=== PATIENT | male | born 1955 | race Caucasian/White ===

== ENCOUNTER 2017-02-19 08:31 | Emergency (ER) | payer MEDICAID, OTHER ==
[2017-02-19 08:41] VITALS: BP 129/81
--- NOTE | 2017-02-19 09:03 | UC ---
Skin Complaint HPI - HPI Summary HPI Summary: PT presents to with 2 complaints. Pt states #1) dry, scaly itchy lesions on scalp x 3 days. PT states had ring worm on scalp following stay at alcohol rehab center. PT states treated with vinegar. STates improved. Pt states lesions came back. Pt has applied vinegar but thinks "I need treatment" #2) pt with wax in left ear x 1 month. PT states x 1 week has sinus congestion, pressure and fullness left frontal area No sore throat. no fever, chills rash., no cough. No n/v/d Pt medications reviewed this visit - History of Current Complaint Chief Complaint: UCSkin Time Seen by Provider: 02/19/17 08:43 Stated Complaint: SKIN ISSUE - Allergy/Home Medications Allergies/Adverse Reactions: Allergies Allergy/AdvReac Type Severity Reaction Status Date / Time No Known Allergies Allergy Verified 02/19/17 08:36 Review of Systems Constitutional: Negative Skin: Rash ENT: Ear Ache, Sinus Congestion Respiratory: Negative All Other Systems Reviewed And Are Negative: Yes PMH/Surg Hx/FS Hx/Imm Hx Previously Healthy: Yes GI/ History: Other Other GI/ History: alcohol dependence - Surgical History Surgical History: None - Family History Known Family History: Positive: Hypertension - Social History Occupation: Unemployed Lives: Alone Alcohol Use: Occasionally - alcohol depedence Substance Use Type: None Substance Use Comment - Amount & Last Used: hx ETOH abuse Smoking Status (MU): Heavy Every Day Tobacco Smoker Amount Used/How Often: 1 PPD Physical Exam Triage Information Reviewed: Yes Completion Of Physical Exam Limited Due To: Altered Mental Status Appearance: Well-Appearing, No Pain Distress, Well-Nourished Vital Signs: Initial Vital Signs Temp 98.1 F 02/19/17 08:36 Pulse 76 02/19/17 08:36 Resp 16 02/19/17 08:36 BP 129/81 02/19/17 08:36 Pulse Ox 98 02/19/17 08:36 Vital Signs Reviewed: Yes Eye Exam: Normal Eyes: Positive: Conjunctiva Clear ENT: Positive: Other - left TM cerum impaction - will irrigate and reassess right TM wnl turbinates boggy + PND no exudate, no erythema, uvula midline Dental Exam: Normal Neck exam: Normal Neck: Positive: Supple, Nontender, No Lymphadenopathy Respiratory Exam: Normal Respiratory: Positive: Chest non-tender, Lungs clear, Normal breath sounds, No respiratory distress, No accessory muscle use Cardiovascular Exam: Normal Cardiovascular: Positive: RRR, No Murmur, Pulses Normal Abdominal Exam: Normal Abdomen Description: Positive: Nontender, No Organomegaly, Soft Bowel Sounds: Positive: Present Musculoskeletal Exam: Normal Musculoskeletal: Positive: Strength Intact, ROM Intact Neurological Exam: Normal Neurological: Positive: Alert, Muscle Tone Normal Psychological Exam: Normal Psychological: Positive: Normal Response To Family Skin: Positive: Other - PT with dry, scaly patchy to scalp L>R no fluctuance, no erythema, circular appearance to some lesion Course/Dx - Course Course Of Treatment: 1) tinea capitis - will start med, d/w pt hygeine. 2) left TM cerumen impaciton - irrigate and reassess. REassessment 9:17. Pt left TM + fluid, + erythema. Will start abx for sinus and otitis. motrin/apap. pt comfortable and in agreement with plan - Diagnoses Provider Diagnoses: otitis media. tinea capitus. cerumen impaction Discharge - Discharge Plan Condition: Stable Disposition: HOME Prescriptions: Griseofulvin Microsize 500 mg PO DAILY #21 tab Patient Education Materials: Tinea Capitis (ED), Otitis Media (ED), Cerumen Impaction (ED) Referrals: No Primary Care Phys,NOPCP [Primary Care Provider] - [facility] [place] [facility] [Outside] Additional Instructions: - take antibiotics as prescribed until gone - okay to alternate ibuprofen (motrin, advil) and tylenol every 3 hours for pain or fever - wash your linens after you have been on antibiotic for 2 days - contact your physician to schedule a follow-up appointment. IF you do not have a doctor, you may contact the physician referral line- they will assist you in schedule with a doctor
== END 2017-02-19 09:27 | disposition home or self-care (01) ==
LOC: UCEAST 08:31
DX: H66.92 Otitis media, unspecified, left ear (principal); B35.0 Tinea barbae and tinea capitis; H61.22 Impacted cerumen, left ear; F17.210 Nicotine dependence, cigarettes, uncomplicated; F10.20 Alcohol dependence, uncomplicated
CPT/HCPCS: 99213; G0463

== ENCOUNTER → 2019-04-08 03:40 | Emergency (ER) | payer OTHER ==
[~2019-04-08 03:40] MED LIST: chlordiazePOXIDE CAP* 25 MG PO ONE
--- NOTE | 2019-04-08 04:46 | ED ---
Dizziness - HPI Summary HPI Summary: Pt is a 63 y/o M presenting to the ED with a chief complaint of dizziness. He states he has had issues with alcoholism in the past, and he was sober, but recently relapsed. Over the last 1.5months, hes been drinking about 1 liter of rum per day. He currently reports shaking, numbness, weakness in his shoulders & arms, sinus pressure, ear blockage, and somewhat of a headache. He states he s had a decreased appetite, nausea, and dry heaving d/t withdrawal. This is similar to prior withdrawal hes had. - History Of Current Complaint Chief Complaint: EDDizziness Stated Complaint: DIZZINESS PER PT Time Seen by Provider: 04/08/19 04:31 Hx Obtained From: Patient Onset/Duration: Still Present, Suddenly Timing: Constant Severity Initially: Moderate Severity Currently: Moderate Character: Weak Aggravating Factor(s): Nothing Alleviating Factor(s): Nothing Associated Signs And Symptoms: Positive: Nausea, Decreased Oral Intake - Allergies/Home Medications Allergies/Adverse Reactions: Allergies Allergy/AdvReac Type Severity Reaction Status Date / Time No Known Allergies Allergy Verified 02/19/17 08:36 PMH/Surg Hx/FS Hx/Imm Hx Previously Healthy: Yes Endocrine/Hematology History: Denies: Hx Diabetes Psychiatric History: Reports: Hx Substance Abuse Infectious Disease History: No Infectious Disease History: Denies: History Other Infectious Disease, Traveled Outside the [place] in Last 30 Days - Family History Known Family History: Positive: Hypertension - Social History Alcohol Use: Occasionally - alcohol depedence Hx Substance Use: Yes Substance Use Type: Reports: None Substance Use Comment - Amount & Last Used: hx ETOH abuse Hx Tobacco Use: Yes Smoking Status (MU): Heavy Every Day Tobacco Smoker Amount Used/How Often: 1 PPD Review of Systems Positive: Other - decreased appetite Positive: Ear Ache, Other - sinus pressure Positive: Nausea Positive: Other - shaking Positive: Headache, Weakness, Numbness All Other Systems Reviewed And Are Negative: Yes Physical Exam - Summary Physical Exam Summary: Appearance: Well-appearing, Well-nourished, lying in bed comfortably Skin: Warm, dry, no obvious rash Eyes: sclera anicteric, no conjunctival pallor ENT: mucous membranes moist, pharynx appears normal Neck: Supple, nontender Respiratory: Clear to auscultation, no signs of respiratory distress Cardiovascular: Normal S1, S2. No murmurs. Normal distal pulses in tibial and radial bilaterally. Abdomen: Soft, nontender, normal active bowel sounds present Musculoskeletal: Mild tension tremor of the arms, Strength/ROM Intact Neurological: A&Ox3, awake and alert, mentation is normal, speech is fluent and appropriate Psychiatric: affect is normal, does not appear anxious or depressed Triage Information Reviewed: Yes Vital Signs On Initial Exam: Initial Vitals Temp Pulse Resp BP Pulse Ox 98.6 F 74 16 171/101 97 04/08/19 03:40 04/08/19 03:40 04/08/19 03:40 04/08/19 03:40 04/08/19 03:40 Vital Signs Reviewed: Yes Procedures - Sedation Patient Received Moderate/Deep Sedation with Procedure: No Diagnostics - Vital Signs Vital Signs Temp Pulse Resp BP Pulse Ox 04/08/19 03:40 98.6 F 74 16 171/101 97 - Laboratory Result Diagrams: 04/08/19 04:34 04/08/19 04:34 Lab Statement: Any lab studies that have been ordered have been reviewed, and results considered in the medical decision making process. - EKG 0344 Cardiac Rate: NL - 80 EKG Rhythm: Sinus Rhythm ST Segment: Normal Ectopy: None Summary of EKG Findings: EKG at 0344 shows NSR at 80 BPM, P waves, QRS complex, and T waves are within normal limits, T waves and intervals are normal, no ischemic changes. This is a normal EKG. ED physician has reviewed and interpreted this EKG. 0355 Cardiac Rate: NL - 85bpm EKG Rhythm: Sinus Rhythm ST Segment: Normal Ectopy: None EKG Comparison: No Significant Change Summary of EKG Findings: EKG at 0355 shows NSR at 85 BPM, P waves, QRS complex, and T waves are within normal limits, T waves and intervals are normal, no ischemic changes. This is a normal EKG. Unchanged from prior. ED physician has reviewed and interpreted this EKG. Dizzy Course/Dx - Course Course Of Treatment: Pt is a 63 y/o M presenting to the ED with a chief complaint of dizziness. He states he has had issues with alcoholism in the past , and he was sober, but recently relapsed. Over the last 1.5months, hes been drinking about 1 liter of rum per day. He currently reports shaking, numbness, weakness in his shoulders & arms, sinus pressure, ear blockage, and somewhat of a headache. He states hes had a decreased appetite, nausea, and dry heaving d/ t withdrawal. This is similar to prior withdrawal hes had. On exam, pt has a mild tension tremor. EKG at 0355 shows NSR at 85 BPM, P waves, QRS complex, and T waves are within normal limits, T waves and intervals are normal, no ischemic changes. This is a normal EKG. Unchanged from prior. ED physician has reviewed and interpreted this EKG. Pt will be d/c'ed with dx of alcohol withdrawal and instructions to f/u with [facility] and/or the [facility]. Pt stable and agreeable with this plan. - Diagnoses Provider Diagnoses: Alcohol withdrawal Discharge ED - Sign-Out/Discharge Documenting (check all that apply): Patient Departure - Discharge Plan Condition: Stable Disposition: HOME Prescriptions: chlordiazePOXIDE CAP* [Librium CAP*] 50 mg PO TID #18 cap MDD 6 Patient Education Materials: Alcohol Withdrawal (ED) Referrals: [facility] [Outside] - [facility] [Outside] - Billing Disposition and Condition Condition: STABLE Disposition: Home - Attestation Statements Document Initiated by Scribe: Yes Documenting Scribe: Olive Lobato Provider For Whom Norah is Documenting (Include Credential): Jasper Noe MD. Scribe Attestation: Olive Meza, andreed for Jasper Noe MD. on 04/08/19 at 2043. Scribe Documentation Reviewed: Yes Provider Attestation: The documentation as recorded by the Olive mcneal accurately reflects the service I personally performed and the decisions made by me, Jasper Noe MD. Status of Scribe Document: Viewed
[2019-04-08 04:49] LABS: ABS Eosinophils 0.1 10^3/ul (0-0.6); ABS Lymphocytes 1.5 10^3/ul (1.0-4.8); ABS Monocytes 0.5 10^3/ul (0-0.8); ABS Neutrophils 2.9 10^3/ul (1.5-7.7); Eosinophil % 2.2 %; Hematocrit 42 % (42-52); Hemoglobin 14.4 g/dL (14.0-18.0); Lymphocyte % 29.4 %; Mean Corpuscular HGB Conc 35 g/dL (31-36); Mean Corpuscular Hemoglobin 34 pg (27-31); Mean Corpuscular Volume 99 fL (80-94); Mean Platelet Volume 8.5 fL (7.4-10.4); Platelet Count 111 10^3/uL (150-450); Red Blood Count 4.23 10^6 /uL (4.18-5.48); Red Cell Distribution Width 16 % (10-15)
[2019-04-08 05:12] LABS: Albumin 4.7 g/dL (3.2-5.2); Albumin/Globulin Ratio 1.9 (1-3); BUN/Creatinine Ratio 20.3 (8-20); Calcium 9.4 mg/dL (8.6-10.3); EGFR African American 120.3 (>60); EGFR Non-African American 99.4 (>60); Globulin 2.5 g/dL (2-4); Potassium 3.9 mmol/L (3.5-5.0); Total Protein 7.2 g/dL (6.4-8.9)
[2019-04-08 05:37] LABS: TSH (Thyroid Stimulating Horm) 1.77 mcIU/mL (0.34-5.60)
[2019-04-08 06:15] VITALS: BP 134/77
== END | disposition home or self-care (01) ==
LOC: ED 03:40
DX: F10.239 Alcohol dependence with withdrawal, unspecified (principal); F17.200 Nicotine dependence, unspecified, uncomplicated
CPT/HCPCS: 36415; 80053; 80320; 84443; 85025; 93005; 99282; A9270-GY; G0480

== ENCOUNTER 2019-05-20 07:49 | Inpatient (IN) | payer OTHER ==
[2019-05-20] MEDS ORDERED: Thiamine INJ* 100 MG, Folic Acid IV* 1 MG, Multiple Vitamin IV ADULT* 10 ML in NS 0.9% ... IV ONE (08:14)
--- NOTE | 2019-05-20 08:16 | ED ---
Substance Abuse/Use - HPI Summary HPI Summary: Pt. is a 64 y.o male who presents to the ER with complaints of dizziness x several days. Pt. notes he is an alcoholic and would like to quit drinking. Pt. states he last drank 30 minutes ago. Pt. seen in for similar sxs. Pt. notes he has been at [facility] in. a few days ago and did not like it there. Pt. states he has never had DTs or withdrawal seizures. Pt. notes nausea without vomiting. Denies CP, SOB, abd. pain. Has not seen a PCP in many years. Sxs are moderate in severity. No current modifying factors. Pt. states he felt anxious this morning and did not know what to do so he came to the ER. - History Of Current Complaint Chief Complaint: EDDetoxRequest Stated Complaint: GENERAL ILLNESS PER PT Time Seen by Provider: 05/20/19 08:01 Hx Obtained From: Patient - Allergies/Home Medications Allergies/Adverse Reactions: Allergies Allergy/AdvReac Type Severity Reaction Status Date / Time No Known Allergies Allergy Verified 05/20/19 07:56 Home Medications: Home Medications NK [No Home Medications Reported] 05/20/19 [History Confirmed 05/20/19] PMH/Surg Hx/FS Hx/Imm Hx Previously Healthy: Yes Endocrine/Hematology History: Denies: Hx Diabetes Psychiatric History: Reports: Hx Substance Abuse Infectious Disease History: No Infectious Disease History: Denies: History Other Infectious Disease, Traveled Outside the [place] in Last 30 Days - Family History Known Family History: Positive: Hypertension, Non-Contributory - Social History Occupation: Unemployed Lives: Alone Alcohol Use: Daily Alcohol Amount: 1/2 to 1 liter of hard liquer daily Hx Substance Use: Yes Substance Use Type: Reports: None Substance Use Comment - Amount & Last Used: hx ETOH abuse Hx Tobacco Use: Yes Smoking Status (MU): Heavy Every Day Tobacco Smoker Amount Used/How Often: 1 PPD Review of Systems Constitutional: Negative Negative: Fever ENT: Negative Cardiovascular: Negative Negative: Palpitations, Chest Pain Respiratory: Negative Negative: Shortness Of Breath, Cough Positive: Nausea. Negative: Abdominal Pain, Vomiting, Diarrhea Genitourinary: Negative Musculoskeletal: Negative Neurological/Mental Status: Other - Dizziness Negative: Headache, Weakness, Paresthesia, Numbness, Syncope Positive: Anxious All Other Systems Reviewed And Are Negative: Yes Physical Exam Triage Information Reviewed: Yes Vital Signs On Initial Exam: Initial Vitals Temp Pulse Resp BP Pulse Ox 97.8 F 103 16 161/104 96 05/20/19 07:50 05/20/19 07:50 05/20/19 07:50 05/20/19 07:50 05/20/19 07:50 Vital Signs Reviewed: Yes Appearance: Positive: Thin - Pt. sitting up in bed in NAD. Answers most questions appropriately. Awake, alert and O x 3. Skin: Positive: Warm, Dry Eyes: Positive: Normal, EOMI, Conjunctiva Inflammed Neck: Positive: Supple Respiratory/Lung Sounds: Positive: Clear to Auscultation, Breath Sounds Present Cardiovascular: Positive: Normal, RRR Abdomen Description: Positive: Nontender, Soft Neurological: Positive: Normal, CN Intact II-III Psychiatric: Positive: Anxious Procedures - Sedation Patient Received Moderate/Deep Sedation with Procedure: No Diagnostics - Vital Signs Vital Signs Temp Pulse Resp BP Pulse Ox 05/20/19 07:50 97.8 F 103 16 161/104 96 - Laboratory Result Diagrams: 05/20/19 08:27 05/20/19 08:27 Lab Statement: Any lab studies that have been ordered have been reviewed, and results considered in the medical decision making process. Course/Dx - Course Course Of Treatment: Pt. with c.o dizziness and not feeling well. HTN. Hx of alcoholism. Pt. given banana bag. ECG done at 0833 shows a sinus rhythm of 84bpm, normal axis, no STEMI, appropriate intervals. Labs show mild elevation in AST and ALT. ETOH 363. Troponin 0.03. 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 and gave INFO for ETOH rehab facilities. Second troponin 0.15. Pt. re-examined he states he is feeling uncomfortable and feels he is starting to withdrawal. VS normal. Pt. denies CP. He does not SOB. Given elevation in troponin, hospitalist consulted. I spoke with Dr. Carpio and she will accept for admission for further cardiac workup. - Diagnoses Differential Diagnosis/HQI/PQRI: Positive: Alcohol Withdrawal, Anxiety, Delirium Tremens, Metabolic Disorder Provider Diagnoses: Alcoholism /alcohol abuse, Elevated troponin I level Discharge ED - Sign-Out/Discharge Documenting (check all that apply): Patient Departure - Discharge Plan Condition: Stable Disposition: ADMITTED TO [facility] - Billing Disposition and Condition Condition: STABLE Disposition: Admitted to [facility] - Attestation Statements Provider Attestation: pt seen by midlevel provider independently, based on their assessment, it was not necessary to present the case to me but I was available for consultation. I did not form a physician-patient relationship with the patient. The chart however, has been reviewed. am signing this note strictly in an administrative capacity.
[2019-05-20 08:43] LABS: ABS Eosinophils 0.1 10^3/ul (0-0.6); ABS Lymphocytes 1.6 10^3/ul (1.0-4.8); ABS Monocytes 0.3 10^3/ul (0-0.8); ABS Neutrophils 2.2 10^3/ul (1.5-7.7); Eosinophil % 1.6 %; Hematocrit 42 % (42-52); Hemoglobin 14.8 g/dL (14.0-18.0); Lymphocyte % 37.9 %; Mean Corpuscular HGB Conc 35 g/dL (31-36); Mean Corpuscular Hemoglobin 35 pg (27-31); Mean Corpuscular Volume 100 fL (80-94); Platelet Count 81 10^3/uL (150-450); Red Blood Count 4.22 10^6 /uL (4.18-5.48); Red Cell Distribution Width 16 % (10-15); White Blood Count 4.1 10^3/uL (3.5-10.8)
[2019-05-20 08:57] LABS: Troponin I 0.03 ng/mL (<0.03)
[2019-05-20 09:22] LABS: Albumin 4.6 g/dL (3.2-5.2); Albumin/Globulin Ratio 1.9 (1-3); BUN/Creatinine Ratio 25.4 (8-20); Calcium 8.7 mg/dL (8.6-10.3); EGFR African American 135.6 (>60); EGFR Non-African American 112.1 (>60); Globulin 2.4 g/dL (2-4); Potassium 3.5 mmol/L (3.5-5.0); Total Bilirubin 0.5 mg/dL (0.2-1.0)
[2019-05-20 12:42] LABS: Troponin I 0.15 ng/mL (<0.03)
[2019-05-20] MEDS ORDERED: Ondansetron INJ* 2 MG/ML VIAL IV ONE (12:50)
[2019-05-20] MEDS ORDERED: NS 0.9% 1000 ML** 1,000 ML IV ONE (12:50)
[2019-05-20] MEDS ORDERED: Acetaminophen TAB* 325 MG PO PRN (13:43)
[2019-05-20] MEDS ORDERED: NS 0.9% 1000 ML** 1,000 ML IV SCH (13:45)
[2019-05-20] MEDS ORDERED: Thiamine INJ* 100 MG/ML 2 ML VIAL IM ONE (13:48)
--- NOTE | 2019-05-20 15:15 | ECHO ---
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 History: Risk factors: Heavy ETOH use. Current tobacco use. Conclusions Summary: - Left ventricle: The cavity size is normal. Wall thickness is normal. Systolic function is normal. The estimated ejection fraction is 60-65%. Wall motion is normal; there are no regional wall motion abnormalities. - Right ventricle: The cavity size is mildly dilated. Systolic function is normal. - Left atrium: The atrium is mildly dilated. - Pulmonary arteries: Systolic pressure is within the normal range. - No significant valvular abnormalities noted. Recommendations: None prior for comparison at time of interpretation. Study data: Transthoracic echocardiogram. Procedure: Transthoracic echocardiography was performed. Image quality was fair. Complete 2D, spectral Doppler, and color flow Doppler. Location: Emergency department. Patient status: Inpatient. Patient room number: ED-03. Rhythm: Normal sinus rhythm with PVC's. Findings Left ventricle: The cavity size is normal. Wall thickness is normal. Systolic function is normal. The estimated ejection fraction is 60-65%. Wall motion is normal; there are no regional wall motion abnormalities. There is no consistent Doppler evidence of clinically significant diastolic dysfunction. Right ventricle: The cavity size is mildly dilated. Systolic function is normal. Systolic pressure is within the normal range. Left atrium: The atrium is mildly dilated. Right atrium: The atrium is normal in size. Mitral valve: The leaflets are mildly thickened. There is no evidence of stenosis. There is mild regurgitation. Aortic valve: The valve is trileaflet. The leaflets are mildly thickened and mildly calcified. There is no evidence of stenosis. There is no significant regurgitation. Tricuspid valve: The leaflets are normal thickness. There is no evidence of stenosis. There is trace to mild regurgitation. Pulmonic valve: The leaflets are normal thickness. There is no evidence of stenosis. There is trace regurgitation. Aorta: Aortic root: The aortic root is appears normal. Ascending aorta: The ascending aorta is upper normal in size. Aortic arch: The aortic arch is appears normal. Pericardium: There is no significant pericardial effusion. Pulmonary arteries: The main pulmonary artery is normal-sized. Systolic pressure is within the normal range. Systemic veins: Inferior vena cava: The vessel is normal in size. There is (>= 50%) respiratory change in the IVC dimension. Measurements Left ventricle Value Ref Aortic valve Value Ref OSWALDO, LAX 4.7 cm 4.2 - 5.8 Jose diam, ED 2.5 cm ----- ESD, LAX 3.1 cm 2.5 - 4.0 Peak v, S 1.7 m/sec ----- FS, LAX 35 % 25 - 43 VTI, S 27.8 cm ----- PW, ED, LAX 0.7 cm 0.6 - 1.0 Mean grad, S 5.0 mm Hg ----- FS 35 % 25 - 43 Peak grad, S 12.0 mm Hg ----- Mid-wall FS 19 % LVOT/AV, VTI ratio 0.76 ----- PW, ED 0.7 cm 0.6 - 1.0 E', lat jose, TDI 12.6 cm/sec >=10.0 Mitral valve Value Ref E/e', lat jose, 7 Peak E 0.9 m/sec ----- TDI Peak A 0.57 m/sec ----- E', med jose, TDI 10.1 cm/sec >=7.0 Decel time 208 ms --- -- E/e', med jose, 9 Peak grad, D 3.2 mm Hg ----- TDI Peak E/A ratio 1.6 ----- E', avg, TDI 11.4 cm/sec E/e', avg, TDI 8 <=14 Pulmonic valve Value Ref Peak v, S 1.15 m/sec ----- LVOT Value Ref Peak grad, S 5.0 mm Hg ----- Peak lianet, S 1.19 m/sec VTI, S 21.0 cm Tricuspid valve Value Ref Peak grad, S 6 mm Hg TR peak v 2.64 m/sec <=2.8 Mean grad, S 3 mm Hg Peak RV-RA grad, S 28 mm Hg ----- Ventricular septum Value Ref Aortic root Value Ref IVS, ED 0.9 cm 0.6 - 1.0 Root diam 3.4 cm <4.1 Right ventricle Value Ref Ascending aorta Value Ref OSWALDO, LAX 4.2 cm AAo AP diam, S 3.6 cm ----- OSWALDO minor ax, A4C 3.5 cm 1.9 - 3.5 mid Aortic arch Value Ref Pressure, S 31 mm Hg Arch diam 2.4 cm ----- Left atrium Value Ref Decending aorta Value Ref AP dim, ES 3.80 cm 3.00 - Diane peak lianet 0.84 m/sec ----- 4.00 ML dim, A4C 4.1 cm Pulmonary artery Value Ref SI dim, A4C 3.8 cm Pressure, S 26.0 mm Hg ----- Vol/bsa, ES, 1-p 20 ml/m^2 12 - 37 A4C Inferior vena cava Value Ref Vol/bsa, ES, A/L (H) 36 ml/m^2 16 - 34 Diam 1.7 cm ----- Right atrium Value Ref SI dim, ES 4.8 cm 3.4 - 5.3 ML dim, ES, A4C 4.0 cm 2.6 - 4.4 Estimated RAP 3 mm Hg Legend: (L) and (H) manisha values outside specified reference range. Amended Donovan Ribeiro MD 05/20/2019 15:15
[2019-05-20] MEDS: LORazepam TAB(*) 1 MG PO SCH ×4 (15:57→21:06)
[2019-05-20] MEDS: Heparin VIAL(*) 5000 UNITS/ML VIAL (FIVE THOUSAND) SUBCUT SCH ×2 (15:57→21:09)
[2019-05-20] MEDS: Aspirin 81 mg CHEW TAB* 81 MG TAB.CHEW PO SCH (15:58)
[2019-05-20 16:13] LABS: Troponin I 0.25 ng/mL (<0.03)
[2019-05-20] MEDS ORDERED: Ondansetron INJ* 2 MG/ML VIAL IV PRN (16:29)
--- NOTE | 2019-05-20 16:42 | HP ---
HISTORY AND PHYSICAL: ADDENDUM: FAMILY HISTORY: Please note that the patient's family history includes mother who of complicati ons of COPD and alcoholism at the age of 59. Father of acute NH as a complication of hypertroph ic cardiomyopathy at the age of 62. [id number]/[facility] #: [id number]
--- NOTE | 2019-05-20 16:42 | HP ---
HISTORY AND PHYSICAL: DATE OF ADMISSION: 05/20/19 PRIMARY CARE PROVIDER: None. CHIEF COMPLAINT: "Dizziness." HISTORY OF PRESENT ILLNESS: Corey Rivera is a 64-year-old male, alcoholic, who drinks approximately a half of bottle to a bottle of [place] rum a day. He stated that he had been drinking alcohol ever since he turned 16, although he had a 2-year break that ended 7 months ago when he got his social security money and he was able to start drinking again. The patient stated that he usually "gets sleepy when he drinks." At the end of March 2019, he was here for dizziness. I believe at that point he was requesting detox, but he was placed on Librium and sent home. Today, he also complains of "dizziness, " but he really stated that he came in with complaint of dizziness to be admitted for "detox." The patient stated that he usually feels unsteady when he drinks but not that unsteady that he falls. He drank half a bottle of rum just before he came into the ED. His alcohol level was over 360. He met with Social Work here and he stated that he basically needed rehab, but he was not really sure if he wanted inpatient or outpatient. He has no chest pain, no shortness of breath. Complained of occasional "smoker's cough." His lab work in the ED included a troponin, which was noted to be initially 0.03 and it went up to 0.15. Once again, the patient is entirely asymptomatic from cardiac standpoint. Due to the positive troponins, he is going to be placed on overnight observation. PAST MEDICAL HISTORY: 1. Alcoholism. 2. Smoking. SOCIAL HISTORY: The patient drinks half a bottle to a liter of rum a day. Smokes approximately half a pack per day, started when he was 16 years old. Denies any drug use. He lives by himself. 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 His sister, Jaylene Rivera, is his surrogate. Her phone number is [phone]. The patient is a full code. REVIEW OF SYSTEMS: Please see history of present illness. All the remaining 12 systems were reviewed with the patient and were otherwise negative. PHYSICAL EXAMINATION GENERAL: The patient is a very pleasant 64-year-old male, who is in no acute distress. The patient is alert and oriented x3. VITAL SIGNS: Blood pressure of 136/78, heart rate of 75 and regular, respiratory rate 17, oxygen saturation 98% on room air, temperature of 97.8. HEENT: Head: Atraumatic, normocephalic. Eyes: Pupils are equal, reactive to light and accommodation. Oropharynx is clear. Mucosa moist. NECK: Supple. No JVD. No bruits bilaterally. RESPIRATORY: Clear to auscultation bilaterally. CARDIOVASCULAR: Regular rate and rhythm. No murmur. ABDOMEN: Soft, nontender. Bowel sounds are present in all 4 quadrants. EXTREMITIES: There is no edema. Pulses are +2 bilaterally. No clubbing or cyanosis. NEUROLOGIC: Speech is clear. Cranial nerves II through XII are grossly intact. Motor strength is 5/5 bilaterally. DIAGNOSTIC STUDIES/LAB DATA: Laboratory data showed sodium of 140, potassium of 3.5, chloride 100, carbon dioxide 21, BUN 18, creatinine of 0.7. The patient 's alkaline phosphatase was slightly elevated at 119. AST was 79, ALT of 57, bilirubin total of 0.5. Troponin of 0.03, repeat troponin 0.15. CBC: White blood cell count of 4.1, hemoglobin of 14.8, hematocrit of 42, MCV of 100, platelets of 81. Alcohol level of 363. Portable chest x-ray is pending at the time of dictation. The patient's EKG showed heart rate of 84 beats per minute, sinus rhythm with no ST changes. ASSESSMENT AND PLAN: 1. Alcoholism in a patient who wants quit drinking. He drank half a bottle of rum just before he came into the ED. At this point, I suspect due to extent of his alcoholism he will likely withdraw. He has problems with significant withdrawal, although the patient stated that he never had withdrawal seizures. He is going to be placed on standing dose of Ativan in addition to Ativan withdrawal protocol. Social Work is already involved in the patient's care. Thiamine and folate are going to be provided. 2. Dizziness. Likely due to alcohol intoxication. Currently, the patient has no nystagmus indicate Wernicke's. He is neurologically intact. 3. The patient has elevated troponin. The patient is otherwise asymptomatic. He denies any chest pain or shortness of breath. His father had history of hypertrophic cardiomyopathy. I will continue checking his troponins until peak and check transthoracic echocardiogram. I will place the patient on baby aspirin on a daily basis. 4. For DVT prophylaxis, the patient is going to be placed on heparin subcutaneously. We will need to watch for worsening of thrombocytopenia. The patient's platelets are 80,000. 5. The patient's elevated liver function tests as well as thrombocytopenia as well as elevated MCV all indicate chronic alcoholism and mild alcoholic hepatitis. We will continue following this lab work in the future. 6. The patient's code status is full. His surrogate is his sister. TIME SPENT: Approximately 62 minutes was spent on admission of this patient, more than half that time was spent [id number] with the patient during the interview and physical exam. ADDENDUM TO HISTORY AND PHYSICAL: FAMILY HISTORY: Please note that the patient's family history includes mother who of complications of COPD and alcoholism at the age of 59. Father of acute OR as a complication of hypertrophic cardiomyopathy at the age of 62. [id number]/CPS #: [id number]/CPS #: [id number] ECHO
[2019-05-20] MEDS ORDERED: Lorazepam PYXIS KEY ONE (22:09)
[2019-05-20] MEDS ORDERED: LORazepam INJ* 2 MG/ML 1 ML VIAL IV PUSH ONE (22:09)
[2019-05-20 23:33] LABS: Troponin I 0.13 ng/mL (<0.03)
[2019-05-21] MEDS: LORazepam TAB(*) 1 MG PO SCH ×9 (00:24→20:25)
[2019-05-21] MEDS: Heparin VIAL(*) 5000 UNITS/ML VIAL (FIVE THOUSAND) SUBCUT SCH (05:49)
[2019-05-21 06:36] LABS: ABS Eosinophils 0.1 10^3/ul (0-0.6); ABS Monocytes 0.4 10^3/ul (0-0.8); ABS Neutrophils 2.3 10^3/ul (1.5-7.7); Eosinophil % 2.3 %; Hematocrit 38 % (42-52); Hemoglobin 13.1 g/dL (14.0-18.0); Lymphocyte % 25.2 %; Mean Corpuscular HGB Conc 35 g/dL (31-36); Mean Corpuscular Hemoglobin 35 pg (27-31); Mean Corpuscular Volume 100 fL (80-94); Mean Platelet Volume 8.9 fL (7.4-10.4); Nucleated Red Blood Cells % 0.1; Platelet Count 62 10^3/uL (150-450); Red Blood Count 3.75 10^6 /uL (4.18-5.48); Red Cell Distribution Width 16 % (10-15); White Blood Count 3.8 10^3/uL (3.5-10.8)
[2019-05-21 06:57] LABS: Albumin 3.9 g/dL (3.2-5.2); BUN/Creatinine Ratio 19.7 (8-20); Calcium 8.3 mg/dL (8.6-10.3); EGFR African American 147.5 (>60); EGFR Non-African American 121.9 (>60); Potassium 3.6 mmol/L (3.5-5.0); Total Protein 5.9 g/dL (6.4-8.9)
[2019-05-21] MEDS: Aspirin 81 mg CHEW TAB* 81 MG TAB.CHEW PO SCH (08:09)
[2019-05-21] MEDS ORDERED: Thiamine TAB* 100 MG TAB PO SCH (09:00)
[2019-05-21] MEDS ORDERED: Folic Acid TAB* 1 MG PO SCH (09:00)
[2019-05-21] MEDS ORDERED: Multivitamins/Minerals TAB PO SCH (09:00)
[2019-05-21] MEDS ORDERED: Aminophylline IV* 25 MG/ML 10 ML VIAL ONE (09:16)
[2019-05-21] MEDS ORDERED: Regadenoson* 0.4 MG/5 ML SYRINGE ONE (09:16)
--- NOTE | 2019-05-21 10:05 | PN ---
Subjective Date of Service: 05/21/19 Interval History: Pt c/o feeling "dizzy in his fingers and when walking". When asked to elaborate on "dizzy" he explains that it's the tremor in is hands and unsteady gait Denies CP/SOB Objective Active Medications: Acetaminophen (Tylenol Tab*) 650 mg PO Q6H PRN PRN Reason: PAIN-MILD/TEMP >/= 100.4 Aspirin (Aspirin 81 Mg Chew Tab*) 81 mg PO DAILY [facility] Last Admin: 05/21/19 08:09 Dose: 81 mg Folic Acid (Folvite Tab*) 1 mg PO DAILY [facility] Last Admin: 05/21/19 08:10 Dose: 1 mg Heparin Sodium (Porcine) (Heparin Vial(*)) 5,000 units SUBCUT Q8HR [facility] Last Admin: 05/21/19 05:49 Dose: 5,000 units Lorazepam (Ativan Tab(*)) 0 - 6 mg PO .PER [facility] PROTOCOL [facility]; Protocol Last Admin: 05/21/19 08:05 Dose: 1 mg Lorazepam (Ativan Tab(*)) 1 mg PO Q6H [facility] Last Admin: 05/21/19 08:08 Dose: 1 mg Multivitamins/Minerals (Theragran/Minerals Tab*) 1 tab PO DAILY [facility] Last Admin: 05/21/19 08:09 Dose: 1 tab Ondansetron HCl (Zofran Inj*) 4 mg IV Q6H PRN PRN Reason: NAUSEA Last Admin: 05/20/19 21:03 Dose: 4 mg Thiamine HCl (Vitamin B-1 Tab*) 100 mg PO DAILY [facility] Last Admin: 05/21/19 08:10 Dose: 100 mg Vital Signs - 8 hr 05/21/19 05/21/19 05/21/19 02:09 02:23 03:15 Temperature Pulse Rate 69 Respiratory 18 20 Rate Blood Pressure (mmHg) O2 Sat by Pulse Oximetry 05/21/19 05/21/19 05/21/19 04:00 04:05 04:10 Temperature 97.2 F Pulse Rate 74 Respiratory 16 16 18 Rate Blood Pressure 123/63 (mmHg) O2 Sat by Pulse 97 Oximetry 05/21/19 05/21/19 05/21/19 04:38 05:48 05:58 Temperature 98.3 F Pulse Rate 68 Respiratory 18 18 16 Rate Blood Pressure 133/78 (mmHg) O2 Sat by Pulse 97 Oximetry 05/21/19 05/21/19 05/21/19 07:15 07:36 07:57 Temperature 98.4 F Pulse Rate 69 Respiratory 17 17 17 Rate Blood Pressure 127/71 (mmHg) O2 Sat by Pulse 95 Oximetry 05/21/19 05/21/19 05/21/19 08:05 08:08 08:12 Temperature Pulse Rate Respiratory 17 17 17 Rate Blood Pressure (mmHg) O2 Sat by Pulse Oximetry 05/21/19 08:13 Temperature Pulse Rate Respiratory 17 Rate Blood Pressure (mmHg) O2 Sat by Pulse Oximetry Oxygen Devices in Use Now: None Appearance: 64 yo M in nAD, aAOx3 Eyes: No Scleral Icterus, PERRLA Ears/Nose/Mouth/Throat: NL Teeth, Lips, Gums, Mucous Membranes Moist Neck: NL Appearance and Movements; NL JVP, Trachea Midline Respiratory: Symmetrical Chest Expansion and Respiratory Effort, - - scant left mid lung rhonchi Cardiovascular: NL Sounds; No Murmurs; No JVD, RRR Abdominal: NL Sounds; No Tenderness; No Distention Lymphatic: No Cervical Adenopathy Extremities: No Edema Skin: No Rash or Ulcers, No Nodules or Sclerosis Neurological: Alert and Oriented x 3, NL Muscle Strength and Tone, - - gait mildly unsteady, but able to ambulate without assistance, tremor in b/l hands- mild Result Diagrams: 05/21/19 05:24 05/21/19 05:24 Assess/Plan/Problems-Billing Assessment: 64 yo M alcoholic presented to ED 30 min after he drunk half of bottle of rum c/o "dizziness". incidentally ordered troponin was increased, - Patient Problems (1) Alcohol withdrawal Comment: controlled by scheduled dose of Ativan and WAM protocol. Cont Thiamine and Folate. Will not taper Ativan doen yet. SW consulted (2) Troponin I above reference range Comment: Echo shows EF 60-65% with no wall motion abn. Troponin peaked at 0.25 Pt is entirely asymptomatic, no CP , no SOB EKG shows no acute changes Pt agrees to stress test today, but fells physically to deconditioned to do treadmill stress tests and requests chemical stress. (3) Thrombocytopenia Comment: likely due to alcoholism, worse today, cont to monitor No bleeding noted. (4) DVT prophylaxis Comment: HSQ-will d/c due to thrombocytopenia Start SCD's Status and Disposition: OBV
[2019-05-22 03:09] VITALS: BP 150/88
[2019-05-22] MEDS: LORazepam TAB(*) 1 MG PO SCH (03:32)
[2019-05-22] MEDS ORDERED: Pneumococcal *Vac Polyvalent 0.5 ML VIAL IM ONE (09:00)
--- NOTE | 2019-05-22 13:34 | DS ---
CC: [facility]; Dr. Jacey Bush; Dr. Colby Lora * DISCHARGE SUMMARY: DATE OF ADMISSION: 05/20/19 DATE OF DISCHARGE: 05/22/19 PRIMARY CARE PROVIDER: None. DISPOSITION AT DISCHARGE: Home. CONDITION ON DISCHARGE: Stable. DISCHARGE DIAGNOSES: 1. Alcohol withdrawal. 2. Elevated troponin with low probability cardiac stress test documented on 09/03. SECONDARY DIAGNOSES: 1. Longstanding alcoholism. 2. Smoking. MEDICATIONS AT DISCHARGE: Include: 1. Thiamine 100 mg daily. 2. Folic acid 1 mg daily. 3. Librium taper at 25 mg tablets, take 2 tablets 3 times a day on day 1, one tablet 3 times a day on day 2, one tablet b.i.d. day 3, one tablet daily day 4, then stop. The patient was dispensed 12 tablets. I-STOP was checked. The patient had Librium prescription filled of 18 tablets 25 mg worth in March 2019. LABORATORY DATA AND STUDIES PERFORMED DURING THE HOSPITAL STAY: On 05/21/19, white blood cell count 3.8, hemoglobin 13.1, hematocrit of 38, MCV of 100, platelets of 62. Sodium 133, potassium 3.6, chloride 101, bicarb dioxide 24, BUN 13, creatinine 0.66. Liver function tests were basically unremarkable apart from slight elevation of AST of 59. The patient's troponin peaked at 0.25. Alcohol at admission was 363. Nuclear medicine cardiac test as well as a chemical stress test obtained on 09/03, impression: "Low risk based on nuclear portion." The impression showed also no evidence of stress induced myocardial ischemia or presence of an infarct. There was no ventricular wall motion and ejection fraction of 65%. The patient's EKG part of his stress test showed no induced ischemia. HOSPITAL COURSE: Corey Rivera is a 64-year-old male who once he got his SSI money 2 months ago started drinking again. He has a history of alcoholism, longstanding, most of his adult life but he was apparently off alcohol for a couple of years until several months ago when he was able to financially afford to drink again. He drank half a bottle of rum and then he came into the ED complaining of dizziness. He stated that he wanted to detox. The ED provider checked troponin without the patient having any cardiac symptoms, no chest pain , no shortness of breath. His troponin was noted to be at 0.03 and peaked at 0.25. Once again, the patient was entirely asymptomatic from a cardiac standpoint. He complained of unsteady gait and tremors in his bilateral upper extremities, but due to the troponin elevation and that the patient was acutely withdrawing from alcohol, he was initially placed on observation and then admitted to the hospital where he required another night of hospital stay. On 05/21/19, the patient underwent a pharmacologic cardiac stress test that showed no evidence of ischemia and normal EF. At this point, we do not have an etiology of the patient's troponin elevation. Throughout this hospital stay, he was withdrawing and he was placed on Ativan in standing order in addition to Ativan p.r.n. Nevertheless, on the night between 05/21/19 and 05/22/19, the patient stated that he felt that the Ativan was not working and he requested Librium. He did not receive the Librium from the nighttime provider that night , and in the morning, the patient requested to be discharged. I spoke at length with the patient. At this point, his withdrawal symptom is mild tremor in bilateral upper extremities. He is alert and oriented x3, and he has a steady gait. He wishes to go home and take Librium at home. The patient was educated about the harmful effects of drinking. He was asked to go to alcohol and drug rehab program in [facility], which he went to before. He is also going to be setup with [facility] for further primary care provider referral. He had received a tapering dose of Librium as mentioned above as well as thiamine and folate. DISPOSITION AT DISCHARGE: Home. CONDITION AT DISCHARGE: Stable. PHYSICAL EXAMINATION: At the time of discharge, blood pressure 150/88, heart rate of 66 and regular, respiratory rate 18, oxygen saturation 98% on room air, temperature 97.3. General: The patient is a very pleasant 64-year-old male who is in no acute distress. The patient is alert and oriented x3. HEENT: Head: Atraumatic, normocephalic. Eyes: Pupils equal, reactive to light and accommodation. Oropharynx clear. Mucosa moist. Neck: Supple. No JVD. No bruits bilaterally. Cardiovascular: Regular rate and rhythm. No murmur. Respiratory: Clear to auscultation bilaterally. Abdomen: Soft, nontender. Bowel sounds present in all 4 quadrants. Extremities: There is no edema. Pulses are +2 bilaterally. No clubbing or cyanosis. On neuro evaluation, speech is clear. Cranial nerves II through XII grossly intact. Motor strength is 5/5 bilaterally. The patient has fine tremors in bilateral upper hands. Gait is steady. Psychiatric Evaluation: Oriented x3 with no evidence of anxiety or depression. Please note that the patient already signed against medical advice paperwork prior to my arrival and my discussion of his discharge. I believe he is leaving without receiving and signing the discharge paperwork. His medications were sent to his pharmacy in [facility] and he is aware of that. Please note that this is a short summary of the patient's hospitalization. Please refer to further medical records for details. TIME SPENT: Approximately 45 minutes was spent on the patient's discharge. [id number]/CPS #: [id number] ECHO
== END 2019-05-22 09:45 | disposition home or self-care (01) | DRG 775 ==
LOC: ED 07:49 → MEDTELE 13:43 → OBSVTOIN 05-21 11:56
PROVIDERS: ADMIT Internal Medicine; ATTEND Internal Medicine
DX: F10.239 Alcohol dependence with withdrawal, unspecified (principal); R79.89 Other specified abnormal findings of blood chemistry; F17.210 Nicotine dependence, cigarettes, uncomplicated; F10.229 Alcohol dependence with intoxication, unspecified; D69.6 Thrombocytopenia, unspecified; Z23 Encounter for immunization
CPT/HCPCS: 36415; 71045; 78452; 80053; 80320; 83690; 84484; 85025; 85060; 90732; 93005; 93017; 93306; 96361; 96365; 96375; 99284; A9270-GY; A9502; G0378; G0480; J0280; J1644; J2060; J2405; J2785; J3411

== ENCOUNTER 2019-07-05 02:06 | Emergency (ER) | payer OTHER ==
[2019-07-05] MEDS ORDERED: Lidocaine 2% VISCOUS* 15 ML UDC PO ONE (02:36)
[2019-07-05] MEDS ORDERED: Al Hydrox/Mg Hydrox/Simet LIQ* 30 ML UDC PO ONE (02:36)
--- OUTSIDE RECORDS SUMMARY | 2019-07-05 03:04 | XMS REPORT | Continuity of Care Document ---
:1955 External Reference #:[id number] Author Name Donovan Ribeiro DO [facility] (transmitted by agent of provider Millie Rooney) Address [address] [place] [address] Problems Description No Information Available Social History Type Date Description Comments Sex Unknown Allergies, Adverse Reactions, Alerts Description No Information Available Medications Description No Information Available Immunizations Description No Information Available Vital Signs Description No Information Available Results Description No Information Available Procedures Date Code Description Status 05/21/2019 60245 Treadmill Interp/Report Only Completed 05/21/2019 45505 Stress Test Supervsn W/Out I/R Completed 05/20/2019 47334 ECHO Transthorasic Realtime 2D W Doppler & Color Flow Hosp Completed Medical Devices Description No Information Available Encounters Description No Information Available Assessments Date Code Description Provider 05/22/2019 F10.239 Alcohol dependence with withdrawal, Ellie Carpio M.D. unspecified 05/22/2019 R79.89 Other specified abnormal findings of Ellie aCrpio M.D. blood chemistry 05/22/2019 R42 Dizziness and giddiness Ellie Carpio M.D. 05/22/2019 R25.1 Tremor, unspecified Ellie Carpio M.D. 05/21/2019 R79.89 Other specified abnormal findings of Donovan Ribeiro DO [facility] blood chemistry 05/21/2019 F10.239 Alcohol dependence with withdrawal, Ellie Carpio M.D. unspecified 05/21/2019 R79.89 Other specified abnormal findings of Ellie Carpio M.D. blood chemistry 05/21/2019 D69.6 Thrombocytopenia, unspecified Ellie Carpio M.D. 05/20/2019 R79.89 Other specified abnormal findings of Donovan Ribeiro [facility] blood chemistry 05/20/2019 R42 Dizziness and giddiness Ellie Carpio M.D. 05/20/2019 F10.239 Alcohol dependence with withdrawal, Ellie Carpio M.D. unspecified 05/20/2019 D69.6 Thrombocytopenia, unspecified Ellie Carpio M.D. 05/20/2019 R79.89 Other specified abnormal findings of Ellie Carpio M.D. blood chemistry Plan of Treatment Future Appointment(s):06/01/2019 9:40 am - Colby Lora MD at [facility] Internal Medicine - [address] Functional Status Description No Information Available Mental Status Description No Information Available Referrals Description No Information Available
--- OUTSIDE RECORDS SUMMARY | 2019-07-05 03:04 | XMS REPORT | Continuity of Care Document ---
:1955 External Reference #:[id number] Author Name Donovan Ribeiro DO [facility] (transmitted by agent of provider Millie Rooney) Address [address] [place] [address] Problems Description No Information Available Social History Type Date Description Comments Sex Unknown Allergies, Adverse Reactions, Alerts Description No Information Available Medications Description No Information Available Immunizations Description No Information Available Vital Signs Description No Information Available Results Description No Information Available Procedures Date Code Description Status 05/21/2019 72944 Treadmill Interp/Report Only Completed 05/21/2019 48174 Stress Test Supervsn W/Out I/R Completed 05/20/2019 30716 ECHO Transthorasic Realtime 2D W Doppler & Color Flow Hosp Completed Medical Devices Description No Information Available Encounters Description No Information Available Assessments Date Code Description Provider 05/22/2019 F10.239 Alcohol dependence with withdrawal, Ellie Carpio M.D. unspecified 05/22/2019 R79.89 Other specified abnormal findings of Ellie Carpio M.D. blood chemistry 05/22/2019 R42 Dizziness and giddiness Ellie Carpio M.D. 05/22/2019 R25.1 Tremor, unspecified Ellie Carpio M.D. 05/21/2019 F10.239 Alcohol dependence with withdrawal, Ellie Carpio M.D. unspecified 05/21/2019 R79.89 Other specified abnormal findings of Ellie Carpio M.D. blood chemistry 05/21/2019 D69.6 Thrombocytopenia, unspecified Ellie Carpio M.D. 05/20/2019 R79.89 Other specified abnormal findings of Donovan Ribeiro DO [facility] blood chemistry 05/20/2019 R42 Dizziness and giddiness Ellie Carpio M.D. 05/20/2019 F10.239 Alcohol dependence with withdrawal, Ellie Carpio M.D. unspecified 05/20/2019 D69.6 Thrombocytopenia, unspecified Ellie Carpio M.D. 05/20/2019 R79.89 Other specified abnormal findings of Ellie Carpio M.D. blood chemistry Plan of Treatment Future Appointment(s):06/01/2019 9:40 am - Colby Lora MD at [facility] Internal Medicine - [address] Functional Status Description No Information Available Mental Status Description No Information Available Referrals Description No Information Available
--- OUTSIDE RECORDS SUMMARY | 2019-07-05 03:04 | XMS REPORT | Continuity of Care Document ---
:1955 External Reference #:[id number] Author Name Ellie Carpio M.D. (transmitted by agent of provider June) Address [address] [place] [address] Care Team Providers Name Role Phone Colby Lora MD - Hospitalist Care Team Information Cardroom Hand [phone] Alcohol & Drug [place] [facility] Care Team Information Cardroom Hand [phone] Cty - Clinic/Center Problems Description No Information Available Social History Type Date Description Comments Sex Unknown Tobacco Use Start: Unknown Patient is a current smoker, smokes every 1/2 PPD day Smoking Status Reviewed: 06/01/19 Patient is a current smoker, smokes every 1/2 PPD day Allergies, Adverse Reactions, Alerts Description No Known Drug Allergies Medications Active Medications SIG Qnty Indications Ordering Provider Date Naltrexone HCL 1 by mouth 30tabs F10.239 Colby Lora MD 06/01/2019 50mg every day Tablets Multi-Vitamin Daily 1 by mouth Unknown every day Tablets Folic Acid take one Unknown 1mg Tablets capsule/tablet daily by mouth Vitamin B1 125 mg daily Unknown 250mg Tablets Immunizations Description No Information Available Vital Signs Date Vital Result Comment 06/01/2019 9:29am Height 74 inches 6'2" Weight 159.00 lb with clothes Heart Rate 77 /min BP Systolic Sitting 130 mmHg BP Diastolic Sitting 82 mmHg Body Temperature 98.6 F O2 % BldC Oximetry 98 % BMI (Body Mass Index) 20.4 kg/m2 Results Description No Information Available Procedures Date Code Description Status 05/21/2019 93690 Treadmill Interp/Report Only Completed 05/21/2019 52211 Stress Test Supervsn W/Out I/R Completed 05/21/2019 04139 EKG, Interpretation Only Completed 05/20/2019 58781 ECHO Transthorasic Realtime 2D W Doppler & Color Flow Hosp Completed Medical Devices Description No Information Available Encounters Type Date Location Provider Dx Diagnosis Office Visit 06/01/2019 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 dependence with Hospitalists withdrawal, unspecified R79.89 Other specified abnormal findings of blood chemistry R42 Dizziness and giddiness R25.1 Tremor, unspecified Office Visit 05/21/2019 [facility] Ellie Carpio, F10.239 Alcohol 9:14a Assbrissa chatterjee.D. dependence with Hospitalists withdrawal, unspecified R79.89 Other specified abnormal findings of blood chemistry D69.6 Thrombocytopenia, unspecified Office Visit 05/20/2019 9:13a [facility] Ellie Carpio, R42 Dizziness and Assoc,pc Maya.Sara giddiness Hospitalists F10.239 Alcohol dependence with withdrawal, unspecified D69.6 Thrombocytopenia, unspecified R79.89 Other specified abnormal findings of blood chemistry Assessments Date Code Description Provider 06/01/2019 F10.239 Alcohol dependence with withdrawal, Colby Lora MD unspecified 06/01/2019 F17.210 Nicotine dependence, cigarettes, Colby Lora MD uncomplicated 06/01/2019 Z12.11 Encounter for screening for malignant Colby Lora MD neoplasm of colon 05/22/2019 F10.239 Alcohol dependence with withdrawal, Ellie Carpio M.D. unspecified 05/22/2019 R79.89 Other specified abnormal findings of Ellie Carpio M.D. blood chemistry 05/22/2019 R42 Dizziness and giddiness Ellie Carpio M.D. 05/22/2019 R25.1 Tremor, unspecified Ellie Carpio M.D. 05/21/2019 R79.89 Other specified abnormal findings of Donovan Ribeiro DO [facility] blood chemistry 05/21/2019 R79.89 Other specified abnormal findings of Donovan Ribeiro DO [facility] blood chemistry 05/21/2019 F10.239 Alcohol dependence with withdrawal, Ellie Carpio M.D. unspecified 05/21/2019 R79.89 Other specified abnormal findings of Ellie Carpio M.D. blood chemistry 05/21/2019 D69.6 Thrombocytopenia, unspecified Ellie Carpio M.D. 05/20/2019 R79.89 Other specified abnormal findings of Donovan Ribeiro, DO [facility] blood chemistry 05/20/2019 R42 Dizziness and giddiness Ellie Carpio M.D. 05/20/2019 F10.239 Alcohol dependence with withdrawal, Ellie Carpio M.D. unspecified 05/20/2019 D69.6 Thrombocytopenia, unspecified Ellie Carpio M.D. 05/20/2019 R79.89 Other specified abnormal findings of Ellie Carpio M.D. blood chemistry Plan of Treatment 06/01/2019 - Colby Lora MDF10.239 Alcohol dependence with withdrawal, unspecifiedNew Medication:Naltrexone HCL 50 mg - 1 by mouth every dayReferral: Alcohol & Drug [place] [facility], Clinic/CenterFollow up:8 xkxmiO72.210 Nicotine dependence, cigarettes, bzynemwoxuyfsN04.11 Encounter for screening for malignant neoplasm of colon Functional Status Description No Information Available Mental Status Description No Information Available Referrals Refer to Reason for Referral Status Appt Date Alcohol & Drug [place] [facility] chronic alcoholism, Sent [address] [facility] [address] [place] [address] [phone]
--- OUTSIDE RECORDS SUMMARY | 2019-07-05 03:04 | XMS REPORT | Continuity of Care Document ---
:1955 External Reference #:[id number] Author Name Donovan Ribeiro DO FAC (transmitted by agent of provider Sehrry Sykes ) Address [address] [place] [address] Care Team Providers Name Role Phone Colby Lora MD - Hospitalist Care Team Information Mortar Man [phone] Alcohol & Drug [place] [facility] Care Team Information Mortar Man Cty - Clinic/Center Problems Description No Information [...] Available Procedures Date Code Description Status 05/21/2019 52102 Treadmill Interp/Report Only Completed 05/21/2019 98532 Stress Test Supervsn W/Out I/R Completed 05/21/2019 11089 EKG, Interpretation Only Completed 05/20/2019 36773 ECHO Transthorasic Realtime 2D W Doppler & Color Flow Hosp Completed Medical Devices Description No Information Available Encounters Type Date Location Provider Dx Diagnosis Office Visit 06/01/2019 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 unspecified 05/21/2019 R79.89 Other specified abnormal findings of Ellie Carpio M.D. blood chemistry 05/21/2019 D69.6 Thrombocytopenia, unspecified Ellie Carpio M.D. 05/20/2019 R79.89 Other specified abnormal findings of Donovan Ribeiro DO [facility] blood chemistry 05/20/2019 R42 Dizziness and giddiness [...] by mouth every dayReferral: Alcohol & Drug [place] [facility], Clinic/CenterFollow up:8 fcwwuB23.210 Nicotine dependence, cigarettes, ulvoqammisaqnJ90.11 Encounter for screening for malignant neoplasm of colon Functional Status Description No Information Available Mental Status Description No Information Available Referrals Refer to Reason for Referral Status Appt Date Alcohol & Drug [place] [facility] chronic alcoholism, Sent [address] [facility] [address] [place] [address] [phone]
--- OUTSIDE RECORDS SUMMARY | 2019-07-05 03:04 | XMS REPORT | Continuity of Care Document ---
:1955 External Reference #:[id number] Author Name Ellie Carpio M.D. (transmitted by agent of provider June) Address [address] [place] [address] Care Team Providers Name Role Phone Colby Lora MD - Hospitalist Care Team Information Show Worker [phone] Alcohol & Drug [place] [facility] Care Team Information Show Worker Cty - Clinic/Center Problems Description No Information [...] Available Procedures Date Code Description Status 05/21/2019 18470 Treadmill Interp/Report Only Completed 05/21/2019 12037 Stress Test Supervsn W/Out I/R Completed 05/21/2019 55306 EKG, Interpretation Only Completed 05/20/2019 20669 ECHO Transthorasic Realtime 2D W Doppler & Color Flow Hosp Completed Medical Devices Description No Information Available Encounters Type Date Location Provider Dx Diagnosis Office Visit 06/01/2019 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 dependence with Hospitalists withdrawal, unspecified R79.89 Other specified abnormal findings of blood chemistry R42 Dizziness and giddiness R25.1 Tremor, unspecified Office Visit 05/21/2019 [facility] Ellie Carpio, F10.239 Alcohol 9:14a Assbrissa chatterjee.D. dependence with Hospitalists withdrawal, unspecified R79.89 Other specified abnormal findings of blood chemistry D69.6 Thrombocytopenia, unspecified Office Visit 05/20/2019 9:13a [facility] Ellie Carpio, R42 Dizziness and Assoc,pc Maya.Sara [...] specified abnormal findings of Donovan Ribeiro DO [facility] blood chemistry 05/21/2019 R79.89 Other specified abnormal findings of Donovan Ribeiro DO [facility] blood chemistry 05/21/2019 F10.239 Alcohol dependence with withdrawal, Ellie Carpio M.D. unspecified 05/21/2019 R79.89 Other specified abnormal findings of Ellie Carpio M.D. blood chemistry 05/21/2019 D69.6 Thrombocytopenia, unspecified Ellie Carpio M.D. 05/20/2019 R79.89 Other specified abnormal findings of Donovan Ribeiro, DO [facility] blood chemistry 05/20/2019 R42 Dizziness and giddiness [...] by mouth every dayReferral: Alcohol & Drug [place] [facility], Clinic/CenterFollow up:8 cmuhyD13.210 Nicotine dependence, cigarettes, lbmihaxnkovprZ86.11 Encounter for screening for malignant neoplasm of colon Functional Status Description No Information Available Mental Status Description No Information Available Referrals Refer to Reason for Referral Status Appt Date Alcohol & Drug [place] [facility] chronic alcoholism, Sent [address] [facility] [address] [place] [address] [phone]
--- OUTSIDE RECORDS SUMMARY | 2019-07-05 03:04 | XMS REPORT | Continuity of Care Document ---
:1955 External Reference #:[id number] Author Name Ellie Carpio M.D. (transmitted by agent of provider June) Address [address] [place] [address] Care Team Providers Name Role Phone Colby Lora MD - Hospitalist Care Team Information Disbursing Agent [phone] Alcohol & Drug [place] [facility] Care Team Information Disbursing Agent Cty - Clinic/Center Problems Description No Information [...] Available Procedures Date Code Description Status 05/21/2019 91203 Treadmill Interp/Report Only Completed 05/21/2019 94676 Stress Test Supervsn W/Out I/R Completed 05/21/2019 52011 EKG, Interpretation Only Completed 05/20/2019 28296 ECHO Transthorasic Realtime 2D W Doppler & Color Flow Hosp Completed Medical Devices Description No Information Available Encounters Type Date Location Provider Dx Diagnosis Office Visit 06/01/2019 Training Consultant Internal Colby Lora MD F10.239 Alcohol dependence 9:40a Medicine - Suite with withdrawal, R unspecified F17.210 Nicotine dependence, cigarettes, uncomplicated Z12.11 Encounter for screening for malignant neoplasm of colon Office Visit 05/21/2019 [facility] Ellie Carpio, F10.239 Alcohol 9:14a Assocbrissa M.D. dependence with Hospitalists withdrawal, unspecified R79.89 Other specified abnormal findings of blood chemistry D69.6 Thrombocytopenia, unspecified Office Visit 05/20/2019 9:13a [facility] Ellie Carpio, R42 Dizziness and Assocbrissa M.D. giddiness Hospitalists F10.239 Alcohol dependence with withdrawal, [...] specified abnormal findings of Donovan Ribeiro DO [facility] blood chemistry 05/21/2019 R79.89 Other specified abnormal findings of Donovan Ribeiro DO [facility] blood chemistry 05/21/2019 F10.239 Alcohol dependence with withdrawal, Ellie Carpio M.D. unspecified 05/21/2019 R79.89 Other specified abnormal findings of Ellie Carpio M.D. blood chemistry 05/21/2019 D69.6 Thrombocytopenia, unspecified Ellie Carpio M.D. 05/20/2019 R79.89 Other specified abnormal findings of Donovan Ribeiro, [facility] blood chemistry 05/20/2019 R42 Dizziness [...] by mouth every dayReferral: Alcohol & Drug [place] [facility], Clinic/CenterFollow up:8 lrvdsL68.210 Nicotine dependence, cigarettes, ypbscnhltarpzW37.11 Encounter for screening for malignant neoplasm of colon Functional Status Description No Information Available Mental Status Description No Information Available Referrals Refer to Reason for Referral Status Appt Date Alcohol & Drug [place] [facility] chronic alcoholism, Sent [address] [facility] [address] [place] [address] [phone]
--- OUTSIDE RECORDS SUMMARY | 2019-07-05 03:04 | XMS REPORT | Continuity of Care Document ---
:1955 External Reference #:[id number] Author Name Colby Lora MD (transmitted by agent of provider Abbie Riley) Address [address] [place] [address] Care Team Providers Name Role Phone Colby Lora MD - Hospitalist Care Team Information Steel Sash Erector [phone] Alcohol & Drug [place] [facility] Care Team Information Steel Sash Erector Cty - Clinic/Center Problems Description No Information [...] Available Procedures Date Code Description Status 05/21/2019 55655 Treadmill Interp/Report Only Completed 05/21/2019 71744 Stress Test Supervsn W/Out I/R Completed 05/20/2019 97449 ECHO Transthorasic Realtime 2D W Doppler & Color Flow Hosp Completed Medical Devices Description No Information Available Encounters Type Date Location Provider Dx Diagnosis Office Visit 06/01/2019 Film Library Clerk Internal Colby Lora MD F10.239 Alcohol dependence [...] specified abnormal findings of Donovan Ribeiro, DO [facility] blood chemistry 05/21/2019 F10.239 Alcohol dependence with withdrawal, Ellie Carpio M.D. unspecified 05/21/2019 R79.89 Other specified abnormal findings of Ellie Carpio M.D. blood chemistry 05/21/2019 D69.6 Thrombocytopenia, unspecified Ellie Carpio M.D. 05/20/2019 R79.89 Other specified abnormal findings of Donovan Ribeiro DO [facility] blood chemistry 05/20/2019 R42 Dizziness and [...] by mouth every dayReferral: Alcohol & Drug [place] [facility], Clinic/CenterFollow up:8 ypeotY25.210 Nicotine dependence, cigarettes, rliufhikwkatmJ96.11 Encounter for screening for malignant neoplasm of colon Functional Status Description No Information Available Mental Status Description No Information Available Referrals Refer to Dr Reason for Referral Status Appt Date Alcohol & Drug [place] [facility] chronic alcoholism, Sent [address] [place] [address] [address] [place] [address] [phone]
[2019-07-05 03:12] LABS: ABS Eosinophils 0.1 10^3/ul (0-0.6); ABS Lymphocytes 1.3 10^3/ul (1.0-4.8); ABS Monocytes 0.3 10^3/ul (0-0.8); ABS Neutrophils 2.2 10^3/ul (1.5-7.7); Eosinophil % 2.2 %; Hematocrit 43 % (42-52); Hemoglobin 14.9 g/dL (14.0-18.0); Lymphocyte % 33.2 %; Mean Corpuscular HGB Conc 35 g/dL (31-36); Mean Corpuscular Hemoglobin 35 pg (27-31); Mean Corpuscular Volume 101 fL (80-94); Nucleated Red Blood Cells % 0.1; Platelet Count 97 10^3/uL (150-450); Red Blood Count 4.24 10^6 /uL (4.18-5.48); Red Cell Distribution Width 14 % (10-15); White Blood Count 3.8 10^3/uL (3.5-10.8)
--- NOTE | 2019-07-05 03:22 | ED ---
Complex/Multi-Sys Presentation - HPI Summary HPI Summary: Patient is a 64 y/o M w/ Hx of alcohol dependence who [facility] for complaints of dizziness, chest congestion and SOB. He denies fevers and cough. Sx have been present for the past week. He reports that he came to the ED due to the persistent nature of these Sx and requests COVID-19 testing. Patient has not been tested previously. No known sick contacts reported. Patient additionally notes that he has been having some nausea, abdominal pain and difficulty eating, stating that his stomach isnt working right. Last alcohol consumption was 2100 07/04/19. Patient claims that he was in the "cardio acevedo" at [facility] in March 2019, patient states that they had found a few "abnormalities" further testing did not find anything definitive. Home medications and allergies are reviewed. Home Medications Medication Instructions Recorded Confirmed Type Folic Acid TAB* [Folvite TAB*] 1 mg PO DAILY #30 tab 05/22/19 Rx Thiamine TAB* [Vitamin B-1 TAB 100 100 mg PO DAILY #30 tab 05/22/19 Rx MG*] chlordiazePOXIDE CAP* [Librium 25 mg PO TID #12 cap MDD 6 tabs 05/22/19 Rx CAP*] - History Of Current Complaint Chief Complaint: EDShortnessOfBreath Time Seen by Provider: 07/05/19 02:29 Hx Obtained From: Patient Onset/Duration: Lasting Weeks Timing: Weeks Severity Currently: Moderate Location: Pain At: - abdomen Associated Signs And Symptoms: Positive: Dizziness, SOB, Nausea, Abdominal Pain , Other - positive - chest congestion, difficulty eating. Negative: Cough, Fever - Allergies/Home Medications Allergies/Adverse Reactions: Allergies Allergy/AdvReac Type Severity Reaction Status Date / Time No Known Allergies Allergy Verified 05/20/19 07:56 Home Medications: Home Medications Folic Acid TAB* [Folvite TAB*] 1 mg PO DAILY #30 tab 05/22/19 [Rx] Thiamine TAB* [Vitamin B-1 TAB 100 MG*] 100 mg PO DAILY #30 tab 05/22/19 [Rx] chlordiazePOXIDE CAP* [Librium CAP*] 25 mg PO TID #12 cap MDD 6 tabs 05/22/19 [ Rx] PMH/Surg Hx/FS Hx/Imm Hx Endocrine/Hematology History: Denies: Hx Diabetes Cardiovascular History: Denies: Hx Angina, Hx Coronary Artery Disease, Hx Hypercholesterolemia, Hx Hypertension, Hx Myocardial Infarction, Hx Pacemaker/ICD, Hx Valvular Heart Disease Respiratory History: Denies: Hx Asthma, Hx Chronic Obstructive Pulmonary Disease (COPD) Sensory History: Reports: Hx Contacts or Glasses Denies: Hx Hearing Aid Opthamlomology History: Reports: Hx Contacts or Glasses Psychiatric History: Reports: Hx Substance Abuse Infectious Disease History: No Infectious Disease History: Denies: History Other Infectious Disease, Traveled Outside the [place] in Last 30 Days - Family History Known Family History: Positive: Hypertension - Social History Alcohol Use: Daily Alcohol Amount: 1/2 to 1 liter of hard liquer daily Hx Substance Use: Yes Substance Use Type: Reports: Marijuana Substance Use Comment - Amount & Last Used: hx ETOH abuse Hx Tobacco Use: Yes Smoking Status (MU): Heavy Every Day Tobacco Smoker Type: Cigarettes Amount Used/How Often: 1 PPD Review of Systems Negative: Fever Respiratory: Other - chest congestion Positive: Shortness Of Breath. Negative: Cough Positive: Abdominal Pain, Nausea, Other - difficulty eating Neurological/Mental Status: Other - positive - dizziness All Other Systems Reviewed And Are Negative: Yes Physical Exam - Summary Physical Exam Summary: Appearance: Well-appearing, Well-nourished, lying in bed comfortably Skin: Warm, dry, no obvious rash Eyes: sclera anicteric, no conjunctival pallor HENT: mucous membranes moist, pharynx appears normal Neck: Supple, nontender Respiratory: Clear to auscultation, no signs of respiratory distress Cardiovascular: Normal S1, S2. No murmurs. Normal distal pulses in tibial and radial bilaterally. Abdomen: Soft, nontender, normal active bowel sounds present Musculoskeletal: Normal, Strength/ROM Intact Neurological: A&Ox3, awake and alert, mentation is normal, speech is fluent and appropriate Psychiatric: affect is normal, does not appear anxious or depressed Triage Information Reviewed: Yes Vital Signs On Initial Exam: Initial Vitals Resp 54 07/05/19 02:09 Vital Signs Reviewed: Yes Procedures - Sedation Patient Received Moderate/Deep Sedation with Procedure: No Diagnostics - Vital Signs Vital Signs Temp Pulse Resp BP Pulse Ox 07/05/19 03:10 109 22 145/86 95 07/05/19 03:00 103 28 90 07/05/19 02:40 83 19 138/84 96 07/05/19 02:10 98.8 F 94 21 158/90 95 07/05/19 02:09 54 - Laboratory Lab Results: Lab Results 07/05/19 Range/Units 02:50 WBC 3.8 (3.5-10.8) 10^3/uL RBC 4.24 (4.18-5.48) 10^6 /uL Hgb 14.9 (14.0-18.0) g/dL Hct 43 (42-52) % MCV 101 H (80-94) fL MCH 35 H (27-31) pg MCHC 35 (31-36) g/dL RDW 14 (10-15) % Plt Count 97 L (150-450) 10^3/uL MPV 9.0 (7.4-10.4) fL Neut % (Auto) 56.4 % Lymph % (Auto) 33.2 % [place] % (Auto) 6.9 % Eos % (Auto) 2.2 % Baso % (Auto) 1.3 % Absolute Neuts (auto) 2.2 (1.5-7.7) 10^3/ul Absolute Lymphs (auto) 1.3 (1.0-4.8) 10^3/ul Absolute Monos (auto) 0.3 (0-0.8) 10^3/ul Absolute Eos (auto) 0.1 (0-0.6) 10^3/ul Absolute Basos (auto) 0.0 (0-0.2) 10^3/ul Absolute Nucleated RBC 0.0 10^3/ul Nucleated RBC % 0.1 Result Diagrams: 07/05/19 02:50 07/05/19 02:50 Lab Statement: Any lab studies that have been ordered have been reviewed, and results considered in the medical decision making process. - Radiology CXR Radiology Interpretation Completed By: ED Physician Summary of Radiographic Findings: CXR showed no acute process, pending official report. Complex Multi-Symp Course/Dx Course Of Treatment: Patient is a 64 y/o M w/ Hx of alcohol dependence who presents to [facility] via EMS for complaints of dizziness, chest congestion and SOB. He denies fevers and cough. Sx have been present for the past week. He reports that he came to the ED due to the persistent nature of these Sx and requests COVID-19 testing. Patient has not been tested previously. No known sick contacts reported. Patient additionally notes that he has been having some nausea, abdominal pain and difficulty eating, stating that his stomach isnt working right. Last alcohol consumption was 2100 07/04/19. Patient claims that he was in the "cardio acevedo" at [facility] in March 2019, patient states that they had found a few "abnormalities" further testing did not find anything definitive. Physical exam was unremarkable. CXR showed no acute process. Bloodwork was obtained, abnormal values include MCV 101, MCH 35, plt count 97, anion gap 14, creatinine 0.66, BUN/creatinine ratio 27.3, AST 78, ALT 71, serum alcohol 235. During ED course, patient received Lidocaine 15 mL and Maalox 30 mL PO. COVID-19 testing was sent and is pending. Patient was discharged to home , isolation precautions and alcohol counseling referral given. - Diagnoses Provider Diagnoses: Alcohol abuse - Critical Care Time Critical Care Statement: Critical care time is provided exclusive of any time spent performing procedures. Discharge ED - Sign-Out/Discharge Documenting (check all that apply): Patient Departure - discharge - Discharge Plan Condition: Stable Disposition: HOME Patient Education Materials: Abuse of Alcohol (ED) Forms: COVID-19 Tested & Isolation Referrals: Care [facility] [Outside] [facility] [place] [Outside] - Attestation Statements Document Initiated by Scribe: Yes Documenting Scribe: AFUA GARCIA Provider For Whom Norah is Documenting (Include Credential): JATIN CRAMER MD Scribe Attestation: AFUA Meza, scribed for JATIN CRAMER MD on 07/05/19 at 0358. Status of Scribe Document: Ready
[2019-07-05 03:24] LABS: Albumin 4.5 g/dL (3.2-5.2); Albumin/Globulin Ratio 1.9 (1-3); BUN/Creatinine Ratio 27.3 (8-20); Calcium 8.7 mg/dL (8.6-10.3); EGFR African American 147.5 (>60); EGFR Non-African American 121.9 (>60); Globulin 2.4 g/dL (2-4); Potassium 3.7 mmol/L (3.5-5.0); Total Bilirubin 0.6 mg/dL (0.2-1.0); Total Protein 6.9 g/dL (6.4-8.9)
[2019-07-05 04:27] VITALS: BP 135/85
== END 2019-07-05 04:27 | disposition home or self-care (01) ==
LOC: ED 02:06
DX: F10.20 Alcohol dependence, uncomplicated (principal); R42 Dizziness and giddiness; R06.02 Shortness of breath; R11.0 Nausea; R10.9 Unspecified abdominal pain; F17.210 Nicotine dependence, cigarettes, uncomplicated; Z20.828 Contact with and (suspected) exposure to other viral communicable diseases
CPT/HCPCS: 36415; 71045; 80053; 80320; 85025; 87635; 99283; A9270-GY; G0480; U0003

== ENCOUNTER 2019-07-15 09:19 | Emergency (ER) | payer OTHER ==
[2019-07-15] MEDS ORDERED: Lactated Ringers 1000 ml BAG 1,000 ML IV ONE (09:36)
[2019-07-15 10:37] LABS: ABS Lymphocytes 1.3 10^3/ul (1.0-4.8); ABS Monocytes 0.2 10^3/ul (0-0.8); Eosinophil % 1.5 %; Hematocrit 42 % (42-52); Hemoglobin 14.9 g/dL (14.0-18.0); Lymphocyte % 39.4 %; Mean Corpuscular HGB Conc 35 g/dL (31-36); Mean Corpuscular Hemoglobin 35 pg (27-31); Mean Corpuscular Volume 101 fL (80-94); Mean Platelet Volume 8.5 fL (7.4-10.4); Platelet Count 110 10^3/uL (150-450); Red Blood Count 4.21 10^6 /uL (4.18-5.48); Red Cell Distribution Width 14 % (10-15); White Blood Count 3.2 10^3/uL (3.5-10.8)
[2019-07-15 11:46] LABS: Albumin 4.6 g/dL (3.2-5.2); Albumin/Globulin Ratio 1.9 (1-3); BUN/Creatinine Ratio 25.7 (8-20); Calcium 8.3 mg/dL (8.6-10.3); EGFR African American 137.8 (>60); EGFR Non-African American 113.9 (>60); Globulin 2.4 g/dL (2-4); Indirect Bilirubin 0.5 mg/dL (0.3-1.0); Potassium 3.7 mmol/L (3.5-5.0); Total Bilirubin 0.6 mg/dL (0.2-1.0)
[2019-07-15 14:44] VITALS: BP 105/89
== END 2019-07-15 13:10 | disposition home or self-care (01) ==
LOC: ED 09:19

== ENCOUNTER 2020-08-23 13:47 | Inpatient (IN) ==
[2020-08-23] MEDS ORDERED: Thiamine 100 MG/ML 2 ml VIAL 100 MG, Folic Acid IV 1 MG, Multiple Vitamin IV ADULT 10 M... IV ONE (14:11)
[2020-08-23 15:38] LABS: ABS Lymphocytes 0.5 10^3/ul (1.0-4.8); ABS Monocytes 0.8 10^3/ul (0-0.8); ABS Neutrophils 4.9 10^3/ul (1.5-7.7); Eosinophil % 0.1 %; Hematocrit 35 % (42-52); Hemoglobin 12.3 g/dL (14.0-18.0); Lymphocyte % 7.2 %; Mean Corpuscular HGB Conc 35 g/dL (31-36); Mean Corpuscular Hemoglobin 38 pg (27-31); Mean Corpuscular Volume 109 fL (80-94); Mean Platelet Volume 7.9 fL (7.4-10.4); Platelet Count 171 10^3/uL (150-450); Red Blood Count 3.26 10^6 /uL (4.18-5.48); Red Cell Distribution Width 16 % (10-15); White Blood Count 6.2 10^3/uL (3.5-10.8)
[2020-08-23 15:44] LABS: ALT 51 U/L (7-52); AST 176 U/L (13-39); Albumin 4.5 g/dL (3.2-5.2); Albumin/Globulin Ratio 1.7 (1-3); Alkaline Phosphatase 124 U/L (35-149); Blood Urea Nitrogen 20 mg/dL (6-24); Calcium 8.8 mg/dL (8.6-10.3); Chloride 92 mmol/L (101-111); EGFR African American 177.7 (>60); EGFR Non-African American 146.9 (>60); Globulin 2.6 g/dL (2-4); Glucose 102 mg/dL (70-100); Lipase 25 U/L (11.0-82.0); Potassium 3.5 mmol/L (3.5-5.0); Sodium 133 mmol/L (135-145); Total Protein 7.1 g/dL (6.4-8.9)
[2020-08-23 15:51] LABS: Anion Gap 29 mmol/L (2-11); CO2 Carbon Dioxide 12 mmol/L (22-32)
[2020-08-23] MEDS ORDERED: NS 0.9% 1000 ml BAG 1,000 ML IV ONE ×2 (16:26→16:38)
[2020-08-23 16:49] LABS: Acetaminophen < 15 mcg/mL; Alcohol, S 211 mg/dL (<10); Salicylate < 2.50 mg/dL (<30)
[2020-08-23 17:57] LABS: Urine Appearance Clear; Urine Bilirubin Negative (Negative); Urine Blood 2+ (Negative); Urine Color Yellow; Urine Glucose 1+(50 mg/dL) (Negative); Urine Ketones 2+ (Negative); Urine Nitrite Negative (Negative); Urine Protein 2+(100 mg/dL) (Negative); Urine Urobilinogen Negative (Negative)
[2020-08-23 18:02] LABS: Urine Bacteria Absent (Absent); Urine Red Blood Cell 1+(3-5/hpf) (Absent); Urine Squamous Epithelial Cell Present (Absent); Urine White Blood Cell Absent (Absent)
[2020-08-23] MEDS ORDERED: Nicotine GUM 2MG FRUIT FLAVOR PO PRN (18:24)
[2020-08-23] MEDS ORDERED: Lactated Ringers 1000 ml BAG 1,000 ML IV SCH (19:00)
[2020-08-23 19:35] LABS: Magnesium 1.7 mg/dL (1.9-2.7); Phosphorus 3.5 mg/dL (2.5-5.0)
[2020-08-24] MEDS ORDERED: Lorazepam PYXIS KEY PRN (01:21)
[2020-08-24] MEDS: LORazepam 2 mg VIAL 1 ml IV PUSH SCH ×3 (01:44→07:40)
[2020-08-24] MEDS: LORazepam 2 mg VIAL 1 ml IV SCH ×2 (01:46→10:21)
[2020-08-24] MEDS: Multivitamins/Minerals TAB PO SCH (08:44)
[2020-08-24] MEDS ORDERED: Nicotine PATCH 14 MG/24 HR PATCH TRANSDERM SCH (09:00)
[2020-08-24 11:25] LABS: ABS Lymphocytes 0.7 10^3/ul (1.0-4.8); ABS Monocytes 0.9 10^3/ul (0-0.8); ABS Neutrophils 4.9 10^3/ul (1.5-7.7); Eosinophil % 0.2 %; Hematocrit 32 % (42-52); Hemoglobin 11.1 g/dL (14.0-18.0); Lymphocyte % 10.1 %; Mean Corpuscular HGB Conc 35 g/dL (31-36); Mean Corpuscular Hemoglobin 38 pg (27-31); Mean Corpuscular Volume 107 fL (80-94); Nucleated Red Blood Cells % 0.1; Platelet Count 137 10^3/uL (150-450); Red Blood Count 2.94 10^6 /uL (4.18-5.48); Red Cell Distribution Width 16 % (10-15); White Blood Count 6.5 10^3/uL (3.5-10.8)
[2020-08-24] MEDS ORDERED: levETIRAcetam 1000MG IVPREMIX 1,000 MG/100 ML BAG IVPB ONE (11:25)
[2020-08-24 11:36] LABS: Albumin/Globulin Ratio 1.9 (1-3); Calcium 8.4 mg/dL (8.6-10.3); EGFR African American 241.1 (>60); EGFR Non-African American 199.2 (>60); Globulin 2.1 g/dL (2-4); Magnesium 1.3 mg/dL (1.9-2.7); Potassium 3.2 mmol/L (3.5-5.0); Total Bilirubin 2.3 mg/dL (0.2-1.0); Total Protein 6.1 g/dL (6.4-8.9)
[2020-08-24] MEDS ORDERED: Iohexol 350 (CONTRAST) 500 ML MDV IV ONE (11:46)
[2020-08-24] MEDS ORDERED: Magnesium Sulf 4 GM/100 ML IV 4,000 MG/100 ML BAG IVPB ONE (11:46)
[2020-08-24 11:47] LABS: Activated Partial Thrombo Time 27.8 seconds (26.0-38.0); INR 1.03 (0.82-1.09)
[2020-08-24] MEDS ORDERED: Thiamine 100 MG/ML 2 ml VIAL 500 MG in NS 0.9% 250 ml 250 ML IV SCH (12:00)
[2020-08-24] MEDS ORDERED: levETIRAcetam 500 MG IVPREMIX 500 MG/100 ML BAG IV SCH (12:00)
[2020-08-24] MEDS: Thiamine 100 MG/ML 2 ml VIAL 500 MG in NS 0.9% 250 ml 250 ML IV SCH (16:16)
[2020-08-24] MEDS ORDERED: Nicotine GUM 2MG FRUIT FLAVOR PO PRN (16:57)
[2020-08-24] MEDS ORDERED: Potassium Chlor 20 meq TAB.ER PO ONE ×2 (19:04→21:00)
[2020-08-24 19:07] LABS: Urine Benzodiazepine Screen None Detected (None Detect); Urine Cannabinoids Screen None Detected (None Detect); Urine Opiates Screen None Detected (None Detect)
[2020-08-24 20:40] LABS: Hepatitis B Surface Antigen Nonreactive (Nonreactive)
[2020-08-24 20:45] LABS: Hepatitis A Ab IgM Negative (Negative); Hepatitis B Core IgM Nonreactive (Nonreactive)
[2020-08-24 20:57] LABS: Hepatitis C Antibody Negative (Negative)
[2020-08-25] MEDS: Thiamine 100 MG/ML 2 ml VIAL 500 MG in NS 0.9% 250 ml 250 ML IV SCH ×3 (00:37→16:20)
[2020-08-25 05:49] LABS: Hematocrit 32 % (42-52); Hemoglobin 11.3 g/dL (14.0-18.0); Mean Corpuscular HGB Conc 35 g/dL (31-36); Mean Corpuscular Hemoglobin 38 pg (27-31); Mean Corpuscular Volume 107 fL (80-94); Mean Platelet Volume 8.7 fL (7.4-10.4); Platelet Count 142 10^3/uL (150-450); Red Blood Count 3.01 10^6 /uL (4.18-5.48); Red Cell Distribution Width 16 % (10-15); White Blood Count 5.6 10^3/uL (3.5-10.8)
[2020-08-25] MEDS ORDERED: Iohexol 350 (CONTRAST) 500 ML MDV IV ONE (06:07)
[2020-08-25 07:04] LABS: Albumin 3.7 g/dL (3.2-5.2); Albumin/Globulin Ratio 1.8 (1-3); Calcium 8.6 mg/dL (8.6-10.3); EGFR African American 193.6 (>60); Globulin 2.1 g/dL (2-4); Indirect Bilirubin 0.9 mg/dL (0.3-1.0); Magnesium 1.6 mg/dL (1.9-2.7); Potassium 3.3 mmol/L (3.5-5.0); Total Bilirubin 1.3 mg/dL (0.2-1.0); Total Protein 5.8 g/dL (6.4-8.9)
[2020-08-25] MEDS ORDERED: Potassium Chloride LIQUID 20 MEQ/15 ML LIQUID PO ONE (07:23)
[2020-08-25] MEDS ORDERED: Magnesium Sulfate IV 3 GM in NS 0.9% 100 ml BAG 100 ML IVPB ONE (08:00)
[2020-08-25] MEDS ORDERED: NS 0.9% 250 ml 0 ML ONE (08:17)
[2020-08-25] MEDS: Multivitamins/Minerals TAB PO SCH (08:54)
[2020-08-25] MEDS: Nicotine PATCH 21 MG/24 HR PATCH TRANSDERM SCH (08:55)
[2020-08-25] MEDS ORDERED: LORazepam 2 mg VIAL 1 ml IV PUSH SCH (11:00)
[2020-08-25] MEDS ORDERED: Potassium Chlor 20 meq TAB.ER PO ONE (11:02)
[2020-08-25] MEDS ORDERED: NS 0.9% 250 ml 250 ML ONE (16:10)
[2020-08-26] MEDS: Thiamine 100 MG/ML 2 ml VIAL 500 MG in NS 0.9% 250 ml 250 ML IV SCH ×4 (00:08→23:57)
[2020-08-26 04:34] LABS: Hematocrit 31 % (42-52); Hemoglobin 11.1 g/dL (14.0-18.0); Mean Corpuscular HGB Conc 36 g/dL (31-36); Mean Corpuscular Hemoglobin 38 pg (27-31); Mean Corpuscular Volume 107 fL (80-94); Mean Platelet Volume 8.9 fL (7.4-10.4); Platelet Count 133 10^3/uL (150-450); Red Blood Count 2.92 10^6 /uL (4.18-5.48); Red Cell Distribution Width 16 % (10-15); White Blood Count 5.8 10^3/uL (3.5-10.8)
[2020-08-26 04:49] LABS: Albumin 3.5 g/dL (3.2-5.2); Calcium 8.4 mg/dL (8.6-10.3); EGFR African American 316.1 (>60); EGFR Non-African American 261.3 (>60); Globulin 2.1 g/dL (2-4); Magnesium 1.7 mg/dL (1.9-2.7); Potassium 3.5 mmol/L (3.5-5.0); Total Protein 5.6 g/dL (6.4-8.9)
[2020-08-26 04:50] LABS: Albumin/Globulin Ratio 1.7 (1-3); Indirect Bilirubin 0.7 mg/dL (0.3-1.0); Total Bilirubin 1.1 mg/dL (0.2-1.0)
[2020-08-26] MEDS: Nicotine PATCH 21 MG/24 HR PATCH TRANSDERM SCH (08:20)
[2020-08-26] MEDS: Multivitamins/Minerals TAB PO SCH (08:20)
[2020-08-26] MEDS ORDERED: Magnesium Sulfate 2 gm BAG 2 GM/50 ML BAG IVPB ONE (14:27)
[2020-08-27] MEDS: Ondansetron ODT 4 mg TAB 4 MG TAB SL PRN (03:50)
[2020-08-27 04:26] LABS: ABS Eosinophils 0.1 10^3/ul (0-0.6); ABS Lymphocytes 1.1 10^3/ul (1.0-4.8); ABS Monocytes 0.7 10^3/ul (0-0.8); ABS Neutrophils 3.9 10^3/ul (1.5-7.7); Eosinophil % 1.8 %; Hematocrit 30 % (42-52); Hemoglobin 10.4 g/dL (14.0-18.0); Lymphocyte % 18.2 %; Mean Corpuscular HGB Conc 35 g/dL (31-36); Mean Corpuscular Hemoglobin 38 pg (27-31); Mean Corpuscular Volume 108 fL (80-94); Mean Platelet Volume 8.5 fL (7.4-10.4); Nucleated Red Blood Cells % 0.1; Platelet Count 146 10^3/uL (150-450); Red Blood Count 2.74 10^6 /uL (4.18-5.48); Red Cell Distribution Width 16 % (10-15); White Blood Count 5.8 10^3/uL (3.5-10.8)
[2020-08-27 04:41] LABS: Calcium 8.2 mg/dL (8.6-10.3); EGFR Non-African American 184.3 (>60); Magnesium 1.7 mg/dL (1.9-2.7); Potassium 3.4 mmol/L (3.5-5.0)
[2020-08-27] MEDS ORDERED: Magnesium Sulfate 2 gm BAG 2 GM/50 ML BAG IVPB ONE (08:07)
[2020-08-27] MEDS ORDERED: Potassium Chlor 20 meq TAB.ER PO ONE (08:07)
[2020-08-27] MEDS: Thiamine 100 MG/ML 2 ml VIAL 500 MG in NS 0.9% 250 ml 250 ML IV SCH ×3 (08:23→23:18)
[2020-08-27] MEDS ORDERED: Polyethylene Glycol 3350 17 GM PACKET PO PRN (08:32)
[2020-08-27] MEDS ORDERED: Senna TAB 8.6 mg TAB PO PRN (08:32)
[2020-08-27] MEDS ORDERED: Magnesium Hydroxide LIQ 30 ML UDC PO PRN (08:32)
[2020-08-27] MEDS: Nicotine PATCH 21 MG/24 HR PATCH TRANSDERM SCH (08:34)
[2020-08-27] MEDS: Multivitamins/Minerals TAB PO SCH (08:34)
[2020-08-28 06:06] LABS: ABS Basophils 0.1 10^3/ul (0-0.2); ABS Eosinophils 0.1 10^3/ul (0-0.6); ABS Lymphocytes 1.1 10^3/ul (1.0-4.8); ABS Monocytes 0.8 10^3/ul (0-0.8); ABS Neutrophils 4.4 10^3/ul (1.5-7.7); Calcium 8.7 mg/dL (8.6-10.3); EGFR Non-African American 184.3 (>60); Eosinophil % 1.5 %; Hematocrit 33 % (42-52); Hemoglobin 11.7 g/dL (14.0-18.0); Lymphocyte % 16.9 %; Magnesium 1.7 mg/dL (1.9-2.7); Mean Corpuscular HGB Conc 35 g/dL (31-36); Mean Corpuscular Hemoglobin 38 pg (27-31); Mean Corpuscular Volume 108 fL (80-94); Mean Platelet Volume 8.8 fL (7.4-10.4); Nucleated Red Blood Cells % 0.1; Platelet Count 184 10^3/uL (150-450); Potassium 3.7 mmol/L (3.5-5.0); Red Blood Count 3.08 10^6 /uL (4.18-5.48); Red Cell Distribution Width 17 % (10-15); White Blood Count 6.5 10^3/uL (3.5-10.8)
[2020-08-28] MEDS: Ondansetron ODT 4 mg TAB 4 MG TAB SL PRN (07:02)
[2020-08-28] MEDS: Nicotine PATCH 21 MG/24 HR PATCH TRANSDERM SCH (08:02)
[2020-08-28] MEDS: Thiamine 100 MG/ML 2 ml VIAL 500 MG in NS 0.9% 250 ml 250 ML IV SCH ×3 (08:02→23:12)
[2020-08-28] MEDS: Multivitamins/Minerals TAB PO SCH (08:02)
[2020-08-28] MEDS ORDERED: Magnesium Sulfate IV 3 GM in NS 0.9% 100 ml BAG 100 ML IVPB ONE (09:00)
[2020-08-29] MEDS: LORazepam 2 mg VIAL 1 ml IV PUSH SCH ×3 (01:15→08:35)
[2020-08-29] MEDS: Multivitamins/Minerals TAB PO SCH (08:22)
[2020-08-29] MEDS: Nicotine PATCH 21 MG/24 HR PATCH TRANSDERM SCH (08:23)
[2020-08-29] MEDS: Thiamine 100 MG/ML 2 ml VIAL 500 MG in NS 0.9% 250 ml 250 ML IV SCH (09:17)
[2020-08-29] MEDS ORDERED: Magnesium Sulf 4 GM/100 ML IV 4,000 MG/100 ML BAG IVPB ONE (09:30)
[2020-08-29 10:19] LABS: Calcium 9.2 mg/dL (8.6-10.3); Magnesium 1.9 mg/dL (1.9-2.7); Potassium 3.7 mmol/L (3.5-5.0)
[2020-08-29 10:24] LABS: EGFR African American 217.6 (>60); EGFR Non-African American 179.8 (>60)
[2020-08-29 20:32] LABS: ABS Eosinophils 0.1 10^3/ul (0-0.6); ABS Lymphocytes 0.8 10^3/ul (1.0-4.8); ABS Monocytes 1.1 10^3/ul (0-0.8); ABS Neutrophils 4.2 10^3/ul (1.5-7.7); Eosinophil % 0.9 %; Hematocrit 34 % (42-52); Lymphocyte % 12.8 %; Mean Corpuscular HGB Conc 35 g/dL (31-36); Mean Corpuscular Hemoglobin 38 pg (27-31); Mean Corpuscular Volume 107 fL (80-94); Mean Platelet Volume 7.8 fL (7.4-10.4); Platelet Count 237 10^3/uL (150-450); Red Blood Count 3.19 10^6 /uL (4.18-5.48); Red Cell Distribution Width 16 % (10-15); White Blood Count 6.2 10^3/uL (3.5-10.8)
[2020-08-29 20:37] LABS: Calcium 8.8 mg/dL (8.6-10.3); EGFR Non-African American 121.5 (>60); Potassium 3.8 mmol/L (3.5-5.0)
[2020-08-29] MEDS ORDERED: Piperacillin/Tazobac ADVAN 3.375 GM in NS 0.9% 100 ml BAG 100 ML IV ONE (20:40)
[2020-08-29] MEDS: NS 0.9% 1000 ml BAG 1,000 ML IV ONE ×2 (20:44→21:05)
[2020-08-29] MEDS ORDERED: NS 0.9% IV SCH (20:45)
[2020-08-29] MEDS ORDERED: cefTRIAXone 1 gm/50 mL NS BAG 1 GM/50 ML BAG IVPB SCH (21:00)
[2020-08-29 21:29] LABS: Urine Appearance Cloudy; Urine Bilirubin Negative (Negative); Urine Blood Negative (Negative); Urine Color Yellow; Urine Glucose Negative (Negative); Urine Ketones Negative (Negative); Urine Nitrite Negative (Negative); Urine Protein Negative (Negative); Urine Specific Gravity 1.017 (1.002-1.030); Urine Urobilinogen Positive (Negative)
[2020-08-29] MEDS: NS 0.9% 1000 ml BAG 1,000 ML IV SCH (22:47)
[2020-08-30 01:54] LABS: Calcium 7.9 mg/dL (8.6-10.3); EGFR African American 193.6 (>60); Potassium 3.5 mmol/L (3.5-5.0)
[2020-08-30 06:26] LABS: Calcium 8.2 mg/dL (8.6-10.3); EGFR African American 155.1 (>60); EGFR Non-African American 128.2 (>60); Potassium 3.4 mmol/L (3.5-5.0)
[2020-08-30] MEDS ORDERED: Potassium Chlor 20 meq TAB.ER PO ONE (08:19)
[2020-08-30] MEDS: NS 0.9% 1000 ml BAG 1,000 ML IV SCH (08:42)
[2020-08-30] MEDS: Multivitamins/Minerals TAB PO SCH (10:13)
[2020-08-30] MEDS: Nicotine PATCH 21 MG/24 HR PATCH TRANSDERM SCH (10:13)
[2020-08-30] MEDS: Piperacillin/Tazobac ADVAN 3.375 GM in NS 0.9% 100 ml BAG 100 ML IV SCH (16:30)
[2020-08-31] MEDS: Piperacillin/Tazobac ADVAN 3.375 GM in NS 0.9% 100 ml BAG 100 ML IV SCH ×4 (01:00→22:26)
[2020-08-31 07:07] LABS: ABS Eosinophils 0.1 10^3/ul (0-0.6); ABS Lymphocytes 0.9 10^3/ul (1.0-4.8); ABS Monocytes 0.9 10^3/ul (0-0.8); ABS Neutrophils 2.3 10^3/ul (1.5-7.7); Eosinophil % 2.2 %; Hematocrit 34 % (42-52); Hemoglobin 11.3 g/dL (14.0-18.0); Lymphocyte % 20.8 %; Mean Corpuscular HGB Conc 34 g/dL (31-36); Mean Corpuscular Hemoglobin 37 pg (27-31); Mean Corpuscular Volume 110 fL (80-94); Mean Platelet Volume 7.4 fL (7.4-10.4); Platelet Count 268 10^3/uL (150-450); Red Blood Count 3.05 10^6 /uL (4.18-5.48); Red Cell Distribution Width 16 % (10-15); White Blood Count 4.1 10^3/uL (3.5-10.8)
[2020-08-31] MEDS: Nicotine PATCH 21 MG/24 HR PATCH TRANSDERM SCH (07:46)
[2020-08-31] MEDS: Multivitamins/Minerals TAB PO SCH (09:16)
[2020-08-31 10:09] LABS: Calcium 8.8 mg/dL (8.6-10.3); EGFR African American 167.3 (>60); EGFR Non-African American 138.3 (>60); Potassium 3.3 mmol/L (3.5-5.0)
[2020-08-31] MEDS ORDERED: Potassium Chlor 20 meq TAB.ER PO ONE (16:43)
[2020-09-01 05:53] LABS: ABS Basophils 0.1 10^3/ul (0-0.2); ABS Eosinophils 0.1 10^3/ul (0-0.6); ABS Lymphocytes 0.9 10^3/ul (1.0-4.8); ABS Monocytes 0.9 10^3/ul (0-0.8); ABS Neutrophils 2.4 10^3/ul (1.5-7.7); Eosinophil % 2.4 %; Hematocrit 31 % (42-52); Hemoglobin 10.7 g/dL (14.0-18.0); Lymphocyte % 21.3 %; Mean Corpuscular HGB Conc 34 g/dL (31-36); Mean Corpuscular Hemoglobin 37 pg (27-31); Mean Corpuscular Volume 109 fL (80-94); Mean Platelet Volume 7.4 fL (7.4-10.4); Platelet Count 289 10^3/uL (150-450); Red Blood Count 2.88 10^6 /uL (4.18-5.48); Red Cell Distribution Width 16 % (10-15); White Blood Count 4.4 10^3/uL (3.5-10.8)
[2020-09-01 06:05] LABS: Calcium 8.9 mg/dL (8.6-10.3); EGFR African American 181.5 (>60); Magnesium 1.9 mg/dL (1.9-2.7); Potassium 4.1 mmol/L (3.5-5.0)
[2020-09-01] MEDS ORDERED: Piperacillin/Tazobac ADVAN 3.375 GM in NS 0.9% 100 ml BAG 100 ML IV SCH (07:30)
[2020-09-01] MEDS: Nicotine PATCH 21 MG/24 HR PATCH TRANSDERM SCH (07:51)
[2020-09-01] MEDS: Multivitamins/Minerals TAB PO SCH (08:07)
[2020-09-01 11:38] VITALS: BP 108/65
== END 2020-09-01 15:58 | disposition home or self-care (01) | DRG 930 ==
LOC: ED 13:47 → SSU 22:24 → ICU 08-24 12:19 → SSU 08-25 15:09
PROVIDERS: ADMIT Internal Medicine; ATTEND Internal Medicine

== ENCOUNTER 2020-12-09 17:24 | Inpatient (IN) ==
[2020-12-09 19:12] LABS: ABS Lymphocytes 0.7 10^3/ul (1.0-4.8); ABS Monocytes 0.4 10^3/ul (0-0.8); Eosinophil % 1.1 %; Hematocrit 41 % (42-52); Hemoglobin 13.9 g/dL (14.0-18.0); Lymphocyte % 21.7 %; Mean Corpuscular HGB Conc 34 g/dL (31-36); Mean Corpuscular Hemoglobin 34 pg (27-31); Mean Corpuscular Volume 100 fL (80-94); Mean Platelet Volume 8.1 fL (7.4-10.4); Nucleated Red Blood Cells % 0.1; Platelet Count 102 10^3/uL (150-450); Red Blood Count 4.12 10^6 /uL (4.18-5.48); Red Cell Distribution Width 16 % (10-15); White Blood Count 3.2 10^3/uL (3.5-10.8)
[2020-12-09 19:22] LABS: INR 0.95 (0.86-1.15)
[2020-12-09 19:44] LABS: Albumin 3.9 g/dL (3.2-5.2); Albumin/Globulin Ratio 1.5 (1-3); C Reactive Protein 18.86 mg/L (<8.01); Calcium 8.3 mg/dL (8.6-10.3); EGFR African American 135.2 (>60); EGFR Non-African American 111.7 (>60); Globulin 2.6 g/dL (2-4); Magnesium 1.7 mg/dL (1.9-2.7); Potassium 3.7 mmol/L (3.5-5.0); Total Bilirubin 0.7 mg/dL (0.2-1.0); Total Protein 6.5 g/dL (6.4-8.9)
[2020-12-09 19:46] LABS: Troponin I 0.01 ng/mL (<0.03)
[2020-12-09 20:00] LABS: TSH Ultra Thyroid Stim Horm 1.24 mcIU/mL (0.34-5.60)
[2020-12-10] MEDS ORDERED: Lactated Ringers 1000 ml BAG 1,000 ML IV ONE ×2 (04:09→04:44)
[2020-12-10 04:33] LABS: Urine Appearance Clear; Urine Bilirubin Negative (Negative); Urine Blood 1+ (Negative); Urine Color Amber; Urine Glucose Negative (Negative); Urine Ketones 1+ (Negative); Urine Nitrite Negative (Negative); Urine Protein 2+(100 mg/dL) (Negative); Urine Specific Gravity 1.023 (1.002-1.030); Urine Urobilinogen Positive (Negative)
[2020-12-10 04:34] LABS: Urine Bacteria Absent (Absent); Urine Red Blood Cell Trace(0-2/hpf) (Absent); Urine White Blood Cell Trace(0-5/hpf) (Absent)
[2020-12-10] MEDS ORDERED: Iohexol 350 (CONTRAST) 500 ML MDV IV ONE (04:34)
[2020-12-10] MEDS ORDERED: Lorazepam PYXIS KEY PRN ×3 (04:45→08:56)
[2020-12-10] MEDS ORDERED: LORazepam 2 mg VIAL 1 ml IV PUSH ONE ×3 (04:45→08:56)
[2020-12-10 04:47] LABS: Rapid COVID-19 Molecular Undetected (Undetected)
[2020-12-10 06:50] LABS: PCO2 Arterial 36 mmHg (35-45); PO2 Arterial 111 mmHg (80-100)
[2020-12-10] MEDS ORDERED: Magnesium Hydroxide LIQ 30 ML UDC PO PRN (08:09)
[2020-12-10] MEDS ORDERED: Al Hydrox/Mg Hydrox/Simet LIQ 30 ML UDC PO PRN (08:09)
[2020-12-10] MEDS ORDERED: Magnesium Sulfate 2 gm BAG 2 GM/50 ML BAG IVPB ONE (08:15)
[2020-12-10] MEDS ORDERED: KCL 20 MEQ/100 ML IVPREMIX 20 MEQ/100 ML BAG IV ONE (08:15)
[2020-12-10 08:48] LABS: Urine Benzodiazepine Screen None Detected (None Detect); Urine Cannabinoids Screen Presumptive Positive (None Detect); Urine Opiates Screen None Detected (None Detect)
[2020-12-10 08:52] LABS: Calcium 8.3 mg/dL (8.6-10.3); EGFR African American 193.6 (>60); Potassium 3.6 mmol/L (3.5-5.0)
[2020-12-10] MEDS ORDERED: Metoprolol Tartrate 5 mg VIAL 5 ml VIAL (1 mg/ml) IV ONE ×2 (08:56→09:00)
[2020-12-10] MEDS ORDERED: NS 0.9% 1000 ml BAG 1,000 ML IV SCH (09:00)
[2020-12-10 09:11] LABS: ABS Lymphocytes 0.5 10^3/ul (1.0-4.8); ABS Monocytes 0.5 10^3/ul (0-0.8); ABS Neutrophils 2.3 10^3/ul (1.5-7.7); Eosinophil % 0.6 %; Hematocrit 43 % (42-52); Hemoglobin 14.3 g/dL (14.0-18.0); Lymphocyte % 13.7 %; Mean Corpuscular HGB Conc 34 g/dL (31-36); Mean Corpuscular Hemoglobin 34 pg (27-31); Mean Corpuscular Volume 101 fL (80-94); Mean Platelet Volume 8.2 fL (7.4-10.4); Nucleated Red Blood Cells % 0.1; Platelet Count 96 10^3/uL (150-450); Red Blood Count 4.25 10^6 /uL (4.18-5.48); Red Cell Distribution Width 15 % (10-15); White Blood Count 3.3 10^3/uL (3.5-10.8)
[2020-12-10] MEDS ORDERED: NS 0.9% 1000 ml BAG 1,000 ML IV ONE ×2 (09:15→09:41)
[2020-12-10 09:25] LABS: ALT 35 U/L (7-52); AST 114 U/L (13-39); Albumin 4.2 g/dL (3.2-5.2); Albumin/Globulin Ratio 1.4 (1-3); Alkaline Phosphatase 132 U/L (35-149); Anion Gap 13 mmol/L (2-11); Blood Urea Nitrogen 11 mg/dL (6-24); C Reactive Protein 20.58 mg/L (<8.01); CO2 Carbon Dioxide 27 mmol/L (22-32); Calcium 9.2 mg/dL (8.6-10.3); Chloride 93 mmol/L (101-111); Creatine Kinase 266 U/L (10-223); EGFR African American 170.7 (>60); EGFR Non-African American 141.1 (>60); Globulin 3.1 g/dL (2-4); Glucose 133 mg/dL (70-100); Potassium 3.6 mmol/L (3.5-5.0); Sodium 133 mmol/L (135-145); Total Protein 7.3 g/dL (6.4-8.9)
[2020-12-10 09:52] LABS: Alcohol, S < 13 mg/dL (<13)
[2020-12-10] MEDS ORDERED: DOXYcycline IV 100 MG in NS 0.9% 250 ML IVPB ONE (10:00)
[2020-12-10] MEDS: Multivitamins/Minerals TAB PO SCH (13:26)
[2020-12-10 16:33] LABS: Activated Partial Thrombo Time 30.7 seconds (26.0-38.0)
[2020-12-10] MEDS: DOXYcycline 100 MG in NS 0.9% 250 ml 250 ML IVPB SCH (23:03)
[2020-12-11 08:25] LABS: Calcium 8.8 mg/dL (8.6-10.3); EGFR African American 217.6 (>60); EGFR Non-African American 179.8 (>60)
[2020-12-11 08:26] LABS: ABS Eosinophils 0.1 10^3/ul (0-0.6); ABS Lymphocytes 0.5 10^3/ul (1.0-4.8); ABS Monocytes 0.5 10^3/ul (0-0.8); ABS Neutrophils 2.2 10^3/ul (1.5-7.7); Eosinophil % 2.4 %; Hematocrit 39 % (42-52); Hemoglobin 13.6 g/dL (14.0-18.0); Lymphocyte % 15.7 %; Mean Corpuscular HGB Conc 35 g/dL (31-36); Mean Corpuscular Hemoglobin 34 pg (27-31); Mean Corpuscular Volume 99 fL (80-94); Mean Platelet Volume 8.5 fL (7.4-10.4); Platelet Count 78 10^3/uL (150-450); Red Blood Count 3.98 10^6 /uL (4.18-5.48); Red Cell Distribution Width 15 % (10-15); White Blood Count 3.3 10^3/uL (3.5-10.8)
[2020-12-11 08:57] LABS: Potassium 3.3 mmol/L (3.5-5.0)
[2020-12-11] MEDS: Nicotine PATCH 21 MG/24 HR PATCH TRANSDERM SCH (09:37)
[2020-12-11] MEDS: Multivitamins/Minerals TAB PO SCH (09:37)
[2020-12-11] MEDS: DOXYcycline 100 MG in NS 0.9% 250 ml 250 ML IVPB SCH ×2 (09:51→22:50)
[2020-12-11] MEDS ORDERED: Potassium Chlor 20 meq TAB.ER PO ONE (10:55)
[2020-12-11 11:34] LABS: Magnesium 1.7 mg/dL (1.9-2.7)
[2020-12-11] MEDS ORDERED: Magnesium Sulfate 2 gm BAG 2 GM/50 ML BAG IVPB ONE (13:45)
[2020-12-11] MEDS: SPIRIVA Respimat (tiotropium) 2.5 mcg/inh Inhaler INH SCH (14:17)
[2020-12-11 18:38] LABS: Folate 17.67 ng/mL (5.90-24.80)
[2020-12-12] MEDS: SPIRIVA Respimat (tiotropium) 2.5 mcg/inh Inhaler INH SCH (07:41)
[2020-12-12] MEDS: Multivitamins/Minerals TAB PO SCH (09:30)
[2020-12-12] MEDS: Nicotine PATCH 21 MG/24 HR PATCH TRANSDERM SCH (09:30)
[2020-12-12] MEDS: DOXYcycline 100 MG in NS 0.9% 250 ml 250 ML IVPB SCH ×2 (10:25→22:25)
[2020-12-12 12:32] LABS: ABS Eosinophils 0.1 10^3/ul (0-0.6); ABS Lymphocytes 0.4 10^3/ul (1.0-4.8); ABS Monocytes 0.5 10^3/ul (0-0.8); Eosinophil % 2.7 %; Hematocrit 45 % (42-52); Hemoglobin 15.3 g/dL (14.0-18.0); Lymphocyte % 10.5 %; Mean Corpuscular HGB Conc 34 g/dL (31-36); Mean Corpuscular Hemoglobin 34 pg (27-31); Mean Corpuscular Volume 100 fL (80-94); Mean Platelet Volume 8.3 fL (7.4-10.4); Nucleated Red Blood Cells % 0.1; Platelet Count 91 10^3/uL (150-450); Red Blood Count 4.51 10^6 /uL (4.18-5.48); Red Cell Distribution Width 15 % (10-15)
[2020-12-12 12:46] LABS: EGFR African American 262.1 (>60); EGFR Non-African American 216.6 (>60); Magnesium 1.8 mg/dL (1.9-2.7); Potassium 3.7 mmol/L (3.5-5.0)
[2020-12-13] MEDS: SPIRIVA Respimat (tiotropium) 2.5 mcg/inh Inhaler INH SCH (09:31)
[2020-12-13] MEDS: Multivitamins/Minerals TAB PO SCH (10:11)
[2020-12-13] MEDS: Nicotine PATCH 21 MG/24 HR PATCH TRANSDERM SCH (10:14)
[2020-12-13] MEDS: DOXYcycline 100 MG in NS 0.9% 250 ml 250 ML IVPB SCH (15:04)
[2020-12-14 06:56] LABS: ABS Eosinophils 0.1 10^3/ul (0-0.6); ABS Lymphocytes 0.9 10^3/ul (1.0-4.8); ABS Monocytes 0.6 10^3/ul (0-0.8); ABS Neutrophils 2.5 10^3/ul (1.5-7.7); Eosinophil % 2.3 %; Hematocrit 39 % (42-52); Hemoglobin 13.4 g/dL (14.0-18.0); Lymphocyte % 22.8 %; Mean Corpuscular HGB Conc 34 g/dL (31-36); Mean Corpuscular Hemoglobin 34 pg (27-31); Mean Corpuscular Volume 100 fL (80-94); Mean Platelet Volume 8.3 fL (7.4-10.4); Platelet Count 122 10^3/uL (150-450); Red Blood Count 3.91 10^6 /uL (4.18-5.48); Red Cell Distribution Width 16 % (10-15); White Blood Count 4.1 10^3/uL (3.5-10.8)
[2020-12-14 07:14] LABS: Calcium 9.1 mg/dL (8.6-10.3); EGFR Non-African American 184.3 (>60); Magnesium 1.8 mg/dL (1.9-2.7); Potassium 3.4 mmol/L (3.5-5.0)
[2020-12-14] MEDS: SPIRIVA Respimat (tiotropium) 2.5 mcg/inh Inhaler INH SCH (07:38)
[2020-12-14] MEDS: Nicotine PATCH 21 MG/24 HR PATCH TRANSDERM SCH (09:02)
[2020-12-14] MEDS: Multivitamins/Minerals TAB PO SCH (11:03)
[2020-12-14] MEDS ORDERED: Potassium Chlor 20 meq TAB.ER PO ONE (11:47)
[2020-12-14] MEDS ORDERED: Magnesium Sulfate 2 gm BAG 2 GM/50 ML BAG IVPB ONE (11:47)
[2020-12-15] MEDS: SPIRIVA Respimat (tiotropium) 2.5 mcg/inh Inhaler INH SCH (07:34)
[2020-12-15] MEDS: Nicotine PATCH 21 MG/24 HR PATCH TRANSDERM SCH (09:13)
[2020-12-15] MEDS: Multivitamins/Minerals TAB PO SCH (09:14)
[2020-12-16] MEDS: SPIRIVA Respimat (tiotropium) 2.5 mcg/inh Inhaler INH SCH (08:23)
[2020-12-16] MEDS: Multivitamins/Minerals TAB PO SCH (10:06)
[2020-12-16] MEDS: Nicotine PATCH 21 MG/24 HR PATCH TRANSDERM SCH (10:07)
[2020-12-16] MEDS ORDERED: Magnesium Sulfate 2 gm BAG 2 GM/50 ML BAG IVPB ONE (15:07)
[2020-12-16] MEDS: KCL 20 MEQ/100 ML IVPREMIX 20 MEQ/100 ML BAG IV SCH ×3 (15:51→22:11)
[2020-12-17] MEDS: SPIRIVA Respimat (tiotropium) 2.5 mcg/inh Inhaler INH SCH (07:39)
[2020-12-17] MEDS: Nicotine PATCH 21 MG/24 HR PATCH TRANSDERM SCH (08:25)
[2020-12-17] MEDS: Multivitamins/Minerals TAB PO SCH (08:27)
[2020-12-17 09:13] LABS: ABS Basophils 0.1 10^3/ul (0-0.2); ABS Eosinophils 0.2 10^3/ul (0-0.6); ABS Lymphocytes 0.9 10^3/ul (1.0-4.8); ABS Monocytes 0.8 10^3/ul (0-0.8); ABS Neutrophils 2.3 10^3/ul (1.5-7.7); Eosinophil % 3.6 %; Hematocrit 43 % (42-52); Hemoglobin 14.8 g/dL (14.0-18.0); Lymphocyte % 21.8 %; Mean Corpuscular HGB Conc 34 g/dL (31-36); Mean Corpuscular Hemoglobin 34 pg (27-31); Mean Corpuscular Volume 100 fL (80-94); Mean Platelet Volume 7.9 fL (7.4-10.4); Nucleated Red Blood Cells % 0.1; Platelet Count 209 10^3/uL (150-450); Red Blood Count 4.29 10^6 /uL (4.18-5.48); Red Cell Distribution Width 15 % (10-15); White Blood Count 4.2 10^3/uL (3.5-10.8)
[2020-12-17 09:27] LABS: Albumin 3.9 g/dL (3.2-5.2); Albumin/Globulin Ratio 1.3 (1-3); Calcium 9.5 mg/dL (8.6-10.3); EGFR African American 170.7 (>60); EGFR Non-African American 141.1 (>60); Magnesium 2.3 mg/dL (1.9-2.7); Potassium 4.4 mmol/L (3.5-5.0); Total Bilirubin 0.7 mg/dL (0.2-1.0); Total Protein 6.9 g/dL (6.4-8.9)
[2020-12-18] MEDS: SPIRIVA Respimat (tiotropium) 2.5 mcg/inh Inhaler INH SCH (07:10)
[2020-12-18] MEDS: Nicotine PATCH 21 MG/24 HR PATCH TRANSDERM SCH (09:53)
[2020-12-18] MEDS: Multivitamins/Minerals TAB PO SCH (09:54)
[2020-12-18 14:41] LABS: Rapid COVID-19 Molecular Undetected (Undetected)
[2020-12-19] MEDS: SPIRIVA Respimat (tiotropium) 2.5 mcg/inh Inhaler INH SCH (07:47)
[2020-12-19] MEDS: Nicotine PATCH 21 MG/24 HR PATCH TRANSDERM SCH (09:16)
[2020-12-19] MEDS: Multivitamins/Minerals TAB PO SCH (09:18)
[2020-12-20 05:37] VITALS: BP 103/59
[2020-12-20] MEDS: SPIRIVA Respimat (tiotropium) 2.5 mcg/inh Inhaler INH SCH (08:28)
[2020-12-20] MEDS: Multivitamins/Minerals TAB PO SCH (10:03)
[2020-12-20] MEDS: Nicotine PATCH 21 MG/24 HR PATCH TRANSDERM SCH (10:04)
== END 2020-12-20 11:30 | DRG 133 ==
LOC: ED 17:24 → MED 12-10 08:09 → SUATTDRO 12-10 08:09 → MED 12-10 13:39 → MEDTELE 12-12 11:27
PROVIDERS: ADMIT Internal Medicine; ATTEND Internal Medicine

== ENCOUNTER 2021-05-17 07:11 | Inpatient (IN) ==
[2021-05-17] MEDS ORDERED: Thiamine IV 100 MG, Folic Acid IV 1 MG, Multiple Vitamin IV ADULT 10 ML in D5NS 0.9% 10... IVPB ONE (08:45)
[2021-05-17 09:09] LABS: ABS Basophils 0.1 10^3/ul (0-0.2); ABS Lymphocytes 0.6 10^3/ul (1.0-4.8); ABS Monocytes 0.6 10^3/ul (0-0.8); ABS Neutrophils 4.2 10^3/ul (1.5-7.7); Eosinophil % 0.5 %; Hematocrit 43 % (42-52); Hemoglobin 14.8 g/dL (14.0-18.0); Lymphocyte % 10.9 %; Mean Corpuscular HGB Conc 35 g/dL (31-36); Mean Corpuscular Hemoglobin 36 pg (27-31); Mean Corpuscular Volume 106 fL (80-94); Mean Platelet Volume 8.5 fL (7.4-10.4); Nucleated Red Blood Cells % 0.1; Platelet Count 160 10^3/uL (150-450); Red Blood Count 4.06 10^6 /uL (4.18-5.48); Red Cell Distribution Width 15 % (10-15); White Blood Count 5.5 10^3/uL (3.5-10.8)
[2021-05-17 09:26] LABS: Urine Benzodiazepine Screen None Detected (None Detect); Urine Cannabinoids Screen Presumptive Positive (None Detect); Urine Opiates Screen None Detected (None Detect)
[2021-05-17 09:56] LABS: Albumin 4.4 g/dL (3.2-5.2); Anion Gap 11 mmol/L (2-11); CO2 Carbon Dioxide 23 mmol/L (22-32); Calcium 9.4 mg/dL (8.6-10.3); Chloride 103 mmol/L (101-111); Magnesium 1.6 mg/dL (1.9-2.7); Potassium 4.1 mmol/L (3.5-5.0); Sodium 137 mmol/L (135-145)
[2021-05-17 10:02] LABS: ALT 34 U/L (7-52); AST 76 U/L (13-39); Albumin/Globulin Ratio 1.8 (1-3); Alcohol, S < 13 mg/dL (<13); Alkaline Phosphatase 98 U/L (35-149); Blood Urea Nitrogen 9 mg/dL (6-24); Globulin 2.4 g/dL (2-4); Glucose 112 mg/dL (70-100); Lipase < 10 U/L (11.0-82.0); Total Protein 6.8 g/dL (6.4-8.9); eGFR CKD-EPI 105.6 (>60)
[2021-05-17] MEDS ORDERED: Magnesium Sulfate 2 gm BAG 2 GM/50 ML BAG IVPB ONE (14:09)
[2021-05-17] MEDS ORDERED: Lorazepam PYXIS KEY PRN (15:31)
[2021-05-17] MEDS ORDERED: Lactated Ringers 1000 ml BAG 1,000 ML IV SCH (16:00)
[2021-05-17] MEDS ORDERED: Enoxaparin 40 MG/0.4 ML SYR SUBCUT SCH (16:00)
[2021-05-17] MEDS ORDERED: LORazepam 2 mg VIAL 1 ml IV PUSH SCH (16:00)
[2021-05-17] MEDS: Enoxaparin 40 MG/0.4 ML SYR SUBCUT SCH (19:40)
[2021-05-17 20:02] LABS: TSH Ultra Thyroid Stim Horm 1.68 mcIU/mL (0.34-5.60)
[2021-05-17 20:13] LABS: Folate > 20.00 ng/mL (5.90-24.80)
[2021-05-17 20:14] LABS: Vitamin B12 381 pg/mL (180-914)
[2021-05-18 05:59] LABS: INR 0.96 (0.86-1.15)
[2021-05-18 06:03] LABS: Hematocrit 39 % (42-52); Hemoglobin 13.6 g/dL (14.0-18.0); Mean Corpuscular HGB Conc 35 g/dL (31-36); Mean Corpuscular Hemoglobin 37 pg (27-31); Mean Corpuscular Volume 106 fL (80-94); Platelet Count 120 10^3/uL (150-450); Red Blood Count 3.68 10^6 /uL (4.18-5.48); Red Cell Distribution Width 15 % (10-15); White Blood Count 3.7 10^3/uL (3.5-10.8)
[2021-05-18 06:18] LABS: Calcium 8.7 mg/dL (8.6-10.3); Magnesium 1.9 mg/dL (1.9-2.7); Potassium 3.7 mmol/L (3.5-5.0); eGFR CKD-EPI 106.6 (>60)
[2021-05-18 08:11] LABS: Albumin 3.8 g/dL (3.2-5.2); Albumin/Globulin Ratio 1.9 (1-3); Direct Bilirubin 0.2 mg/dL (0.03-0.18); Total Bilirubin 1.2 mg/dL (0.2-1.0); Total Protein 5.8 g/dL (6.4-8.9)
[2021-05-18] MEDS: Multivitamins/Minerals TAB PO SCH (09:01)
[2021-05-18 13:45] LABS: Urine Appearance Clear; Urine Bilirubin Negative (Negative); Urine Blood Negative (Negative); Urine Color Yellow; Urine Glucose Negative (Negative); Urine Ketones Negative (Negative); Urine Nitrite Negative (Negative); Urine Protein 1+(30 mg/dL) (Negative); Urine Specific Gravity 1.013 (1.002-1.030); Urine Urobilinogen Negative (Negative)
[2021-05-18 13:53] LABS: Urine Bacteria 1+ (Absent); Urine Red Blood Cell 1+(3-5/hpf) (Absent); Urine White Blood Cell Trace(0-5/hpf) (Absent)
[2021-05-18] MEDS: LORazepam 2 mg VIAL 1 ml IV PUSH SCH ×2 (20:03→22:18)
[2021-05-18] MEDS: Enoxaparin 40 MG/0.4 ML SYR SUBCUT SCH (20:07)
[2021-05-19 06:33] LABS: ABS Basophils 0.1 10^3/ul (0-0.2); ABS Eosinophils 0.2 10^3/ul (0-0.6); ABS Lymphocytes 0.9 10^3/ul (1.0-4.8); ABS Monocytes 0.5 10^3/ul (0-0.8); ABS Neutrophils 2.7 10^3/ul (1.5-7.7); Eosinophil % 3.8 %; Hematocrit 41 % (42-52); Hemoglobin 14.1 g/dL (14.0-18.0); Mean Corpuscular HGB Conc 34 g/dL (31-36); Mean Corpuscular Hemoglobin 37 pg (27-31); Mean Corpuscular Volume 106 fL (80-94); Mean Platelet Volume 8.1 fL (7.4-10.4); Nucleated Red Blood Cells % 0.1; Platelet Count 121 10^3/uL (150-450); Red Blood Count 3.85 10^6 /uL (4.18-5.48); Red Cell Distribution Width 15 % (10-15); White Blood Count 4.3 10^3/uL (3.5-10.8)
[2021-05-19 07:11] LABS: Albumin 3.9 g/dL (3.2-5.2); Albumin/Globulin Ratio 1.9 (1-3); Globulin 2.1 g/dL (2-4); Magnesium 1.9 mg/dL (1.9-2.7); Potassium 4.1 mmol/L (3.5-5.0); Total Bilirubin 1.1 mg/dL (0.2-1.0); eGFR CKD-EPI 102.3 (>60)
[2021-05-19] MEDS: Multivitamins/Minerals TAB PO SCH (08:19)
[2021-05-19] MEDS ORDERED: Thiamine 100 MG/ML 2 ml VIAL 500 MG in NS 0.9% 250 ml 250 ML IV SCH (09:00)
[2021-05-19 09:53] LABS: Phosphorus 4.1 mg/dL (2.5-5.0)
[2021-05-19] MEDS: Thiamine 100 MG/ML 2 ml VIAL 500 MG in NS 0.9% 250 ml 250 ML IV SCH ×3 (10:04→20:45)
[2021-05-19] MEDS: Enoxaparin 40 MG/0.4 ML SYR SUBCUT SCH (20:27)
[2021-05-20 07:54] LABS: Calcium 8.5 mg/dL (8.6-10.3); Magnesium 1.8 mg/dL (1.9-2.7); Phosphorus 4.2 mg/dL (2.5-5.0); Potassium 3.8 mmol/L (3.5-5.0); eGFR CKD-EPI 106.1 (>60)
[2021-05-20] MEDS: Multivitamins/Minerals TAB PO SCH (08:39)
[2021-05-20] MEDS ORDERED: Magnesium Sulfate IV 1GM/100ML 1 GM/100 ML BAG IV ONE (08:41)
[2021-05-20] MEDS ORDERED: Lactated Ringers 500 ml BAG 500 ML IV ONE (14:23)
[2021-05-20] MEDS: Enoxaparin 40 MG/0.4 ML SYR SUBCUT SCH (21:16)
[2021-05-21 06:20] LABS: Calcium 8.5 mg/dL (8.6-10.3); Magnesium 1.9 mg/dL (1.9-2.7); Phosphorus 3.9 mg/dL (2.5-5.0); Potassium 3.6 mmol/L (3.5-5.0); eGFR CKD-EPI 106.6 (>60)
[2021-05-21] MEDS ORDERED: Potassium Chlor 20 meq TAB.ER PO ONE (06:58)
[2021-05-21] MEDS ORDERED: Magnesium Sulfate IV 1GM/100ML 1 GM/100 ML BAG IV ONE (06:59)
[2021-05-21] MEDS: Multivitamins/Minerals TAB PO SCH (08:27)
[2021-05-21] MEDS: Enoxaparin 40 MG/0.4 ML SYR SUBCUT SCH (20:44)
[2021-05-22 06:24] LABS: Calcium 8.8 mg/dL (8.6-10.3); Phosphorus 4.4 mg/dL (2.5-5.0); eGFR CKD-EPI 104.6 (>60)
[2021-05-22] MEDS: Multivitamins/Minerals TAB PO SCH (09:27)
[2021-05-22] MEDS: Enoxaparin 40 MG/0.4 ML SYR SUBCUT SCH (20:10)
[2021-05-23 06:56] LABS: Calcium 8.9 mg/dL (8.6-10.3); Magnesium 1.8 mg/dL (1.9-2.7); Phosphorus 4.4 mg/dL (2.5-5.0); Potassium 4.3 mmol/L (3.5-5.0); eGFR CKD-EPI 103.6 (>60)
[2021-05-23] MEDS: Multivitamins/Minerals TAB PO SCH (08:51)
[2021-05-23 12:23] VITALS: BP 109/71
== END 2021-05-23 16:23 | disposition home or self-care (01) | DRG 775 ==
LOC: EDHOLD 07:11 → ED 07:11 → INTOOBSV 15:39 → OBSVTOIN 15:39 → SUATTDRO 15:39 → EDHOLD 17:37 → MEDTELE 17:55 → SUATTDRO 05-21 12:07 → UNDODISOB 05-23 16:23
PROVIDERS: ADMIT Student in an Organized Health Care Education/Training Program; ATTEND Internal Medicine

== ENCOUNTER 2023-06-17 21:21 | Inpatient (IN) ==
[2023-06-17 21:56] LABS: INR 1.01 (0.83-1.13)
[2023-06-17 22:04] LABS: Hematocrit 53.5 % (38-53); Mean Corpuscular Hemoglobin 36.2 pg (27-33); Mean Corpuscular Hgb Conc 33.7 g/dL (31-36); Mean Corpuscular Volume 107.6 fL (80-97); Red Blood Count 4.97 10^6/uL (4.06-5.63); Red Cell Distribution Width 14.2 % (12-17); White Blood Count 11.4 10^3/uL (3.6-10.2)
[2023-06-17] MEDS: NS 0.9% 1000 ml BAG 1,000 ML IV ONE ×2 (22:11→23:13)
[2023-06-17 22:27] LABS: ALT 35 U/L (7-52); AST 52 U/L (13-39); Albumin 5.3 g/dL (3.2-5.2); Albumin/Globulin Ratio 1.9 (1-3); Alcohol, S < 13 mg/dL (<13); Alkaline Phosphatase 82 U/L (35-149); Anion Gap 31 mmol/L (2-16); Blood Urea Nitrogen 20 mg/dL (6-24); CO2 Carbon Dioxide 11 mmol/L (22-32); Calcium 9.9 mg/dL (8.6-10.3); Chloride 92 mmol/L (101-111); Creatinine, Serum 1.06 mg/dL (0.67-1.17); Globulin 2.8 g/dL (2-4); Glucose 161 mg/dL (70-100); Lipase 148 U/L (11.0-82.0); Potassium 4.5 mmol/L (3.5-5.0); Sodium 134 mmol/L (135-145); Total Bilirubin 2.3 mg/dL (0.2-1.0); Total Protein 8.1 g/dL (6.4-8.9); eGFR CKD-EPI 76.9 (>60)
[2023-06-17 22:32] LABS: ABS Lymphocytes 0.5 10^3/uL (1.0-4.8); ABS Monocytes 0.6 10^3/uL (0.0-1.1); ABS Neutrophils 10.3 10^3/uL (1.5-7.6); ABS Nucleated RBC 0.01 10^3/ul; Lymphocyte % 4.5 %; Mean Platelet Volume 10.1 fL (7.5-11.2); Nucleated Red Blood Cells % 0.1 %/100WBC (0.0-0.8); Platelet Count 133 10^3/uL (150-450)
[2023-06-17] MEDS: Iohexol 350 (CONTRAST) 500 ML MDV IV ONE (23:02)
[2023-06-17] MEDS: cefTRIAXone 1 gm/50 mL D5W 1 GM/50 ML BAG IV ONE (23:14)
[2023-06-17] MEDS: Droperidol 5 MG/2 ML 2 ML VIAL IV ONE (23:14)
[2023-06-17] MEDS: Pantoprazole VIAL 40 MG VIAL IV ONE (23:14)
[2023-06-17 23:44] LABS: High Sensitivity Troponin 1 Hr 19 pg/mL (<20)
[2023-06-18] MEDS ORDERED: Lorazepam PYXIS KEY PRN (00:06)
[2023-06-18] MEDS ORDERED: LORazepam 2 MG/ML 1 mL Syringe ONE (00:16)
[2023-06-18] MEDS: LORazepam 2 mg VIAL 1 ml IV PUSH ONE (00:28)
[2023-06-18] MEDS: Octreotide Acetate 50 MCG in NS 0.9% 50 ML 50 ML IV ONE (00:28)
[2023-06-18] MEDS ORDERED: LORazepam 2 mg VIAL 1 ml IV PUSH SCH (01:00)
[2023-06-18] MEDS ORDERED: diazePAM INJ CARPUJECT 5 MG/ML SYRINGE IV PRN (01:00)
[2023-06-18] MEDS: Thiamine 100 MG/ML 2 ml VIAL (200 mg) IM ONE (01:16)
[2023-06-18] MEDS ORDERED: Ondansetron 4 mg VIAL 2 MG/ML 2 ml VIAL IV PRN (01:33)
[2023-06-18] MEDS: Pantoprazole VIAL 40 MG VIAL IV SCH (01:44)
[2023-06-18] MEDS: Octreotide Acetate 500 MCG in NS 0.9% 100 ml BAG 100 ML IV SCH (01:46)
[2023-06-18 02:22] LABS: Venous Bicarbonate HCO3 10.9 mmol/L (24-28)
[2023-06-18] MEDS: Lactated Ringers 1000 ml BAG 1,000 ML IV SCH (04:06)
[2023-06-18] MEDS ORDERED: Albuterol HFA INHALER 8 gm MDI INH PRN (04:11)
[2023-06-18] MEDS ORDERED: Acetaminophen IV 1 GM/100ML 1,000 MG/100 ML BAG IV PRN (04:32)
[2023-06-18 05:44] LABS: ABS Lymphocytes 0.6 10^3/uL (1.0-4.8); ABS Monocytes 0.7 10^3/uL (0.0-1.1); ABS Neutrophils 6.6 10^3/uL (1.5-7.6); Hematocrit 46.9 % (38-53); Hemoglobin 15.9 g/dL (13.2-16.3); Mean Corpuscular Hemoglobin 36.7 pg (27-33); Mean Corpuscular Hgb Conc 33.9 g/dL (31-36); Mean Corpuscular Volume 108.3 fL (80-97); Mean Platelet Volume 9.3 fL (7.5-11.2); Platelet Count 87 10^3/uL (150-450); Red Blood Count 4.33 10^6/uL (4.06-5.63); Red Cell Distribution Width 13.7 % (12-17); White Blood Count 7.9 10^3/uL (3.6-10.2)
[2023-06-18 06:12] LABS: TSH Ultra Thyroid Stim Horm 0.31 mcIU/mL (0.34-5.60)
[2023-06-18 06:14] LABS: Albumin 4.4 g/dL (3.2-5.2); Albumin/Globulin Ratio 2.1 (1-3); Calcium 8.2 mg/dL (8.6-10.3); Creatinine, Serum 0.85 mg/dL (0.67-1.17); Globulin 2.1 g/dL (2-4); Magnesium 1.8 mg/dL (1.9-2.7); Potassium 4.3 mmol/L (3.5-5.0); Total Bilirubin 1.6 mg/dL (0.2-1.0); Total Protein 6.5 g/dL (6.4-8.9); eGFR CKD-EPI 95.2 (>60)
[2023-06-18 06:25] LABS: Folate 3.65 ng/mL (5.90-24.80)
[2023-06-18] MEDS: Magnesium Sulfate 2 gm BAG 2 GM/50 ML BAG IVPB ONE (06:34)
[2023-06-18] MEDS ORDERED: Sodium Bicarbonate 8.4% SYR 50 ml SYRINGE IV ONE (06:37)
[2023-06-18] MEDS: Tiotropium Brom/Olodaterol MDI (ACUTE) INH SCH (07:26)
[2023-06-18] MEDS: Nicotine PATCH 14 MG/24 HR PATCH TRANSDERM SCH (09:26)
[2023-06-18] MEDS: Potassium Phosphate IV 10 MMOL in NS 0.9% 250 ml 250 ML IVPB ONE (09:26)
[2023-06-18] MEDS: Sodium Bicarbonate 8.4% VIAL 1 MEQ/ML 50 ml VIAL (50 meq) IV ONE (09:26)
[2023-06-18] MEDS: Thiamine 100 MG/ML 2 ml VIAL 500 MG in NS 0.9% 250 ml 250 ML IV SCH (09:26)
[2023-06-18] MEDS: Multivitamins/Minerals TAB PO SCH (09:30)
[2023-06-18] MEDS: diazePAM INJ CARPUJECT 5 MG/ML SYRINGE IV PRN (09:42)
[2023-06-18 10:06] LABS: PCO2 Arterial 27 mmHg (35-45); PO2 Arterial 76 mmHg (80-100)
[2023-06-18 10:08] LABS: Calcium 8.5 mg/dL (8.6-10.3); Creatinine, Serum 0.82 mg/dL (0.67-1.17); Magnesium 2.6 mg/dL (1.9-2.7); Phosphorus 1.6 mg/dL (2.5-5.0); Potassium 3.8 mmol/L (3.5-5.0); eGFR CKD-EPI 96.3 (>60)
[2023-06-18 10:21] LABS: Free T4 0.65 ng/dL (0.61-1.12)
[2023-06-18 10:29] LABS: Thyroid Peroxidase Antibodies 1.32 IU/mL (<9)
[2023-06-18 10:30] LABS: Vitamin D Total 25(OH) 7.1 ng/mL (20-50)
[2023-06-18] MEDS: Potassium Phosphate IV 15 MMOL in NS 0.9% 250 ml 250 ML IVPB ONE ×2 (16:38→21:46)
[2023-06-18 20:24] LABS: Calcium 8.5 mg/dL (8.6-10.3); Creatinine, Serum 0.75 mg/dL (0.67-1.17); Phosphorus 1.1 mg/dL (2.5-5.0); Potassium 3.7 mmol/L (3.5-5.0); eGFR CKD-EPI 98.9 (>60)
[2023-06-18] MEDS: Enoxaparin 40 MG/0.4 ML SYR SUBCUT SCH (20:51)
[2023-06-19 06:15] LABS: Albumin 3.8 g/dL (3.2-5.2); Albumin/Globulin Ratio 2.2 (1-3); Calcium 8.4 mg/dL (8.6-10.3); Creatinine, Serum 0.62 mg/dL (0.67-1.17); Globulin 1.7 g/dL (2-4); Magnesium 1.7 mg/dL (1.9-2.7); Phosphorus 1.3 mg/dL (2.5-5.0); Total Bilirubin 1.6 mg/dL (0.2-1.0); Total Protein 5.5 g/dL (6.4-8.9); eGFR CKD-EPI 104.8 (>60)
[2023-06-19 07:17] LABS: Hematocrit 39.6 % (38-53); Hemoglobin 13.9 g/dL (13.2-16.3); Mean Corpuscular Volume 105.5 fL (80-97); Mean Platelet Volume 10.3 fL (7.5-11.2); Platelet Count 70 10^3/uL (150-450); Red Blood Count 3.76 10^6/uL (4.06-5.63); Red Cell Distribution Width 13.9 % (12-17); White Blood Count 5.9 10^3/uL (3.6-10.2)
[2023-06-19] MEDS: Magnesium Sulfate 2 gm BAG 2 GM/50 ML BAG IVPB ONE (07:43)
[2023-06-19] MEDS: Potassium Chlor 20 meq TAB.ER PO ONE (08:02)
[2023-06-19] MEDS: Potassium Phosphate IV 15 MMOL in NS 0.9% 250 ml 250 ML IVPB ONE ×2 (10:17→22:28)
[2023-06-19] MEDS: Magnesium Sulfate IV 1GM/100ML 1 GM/100 ML BAG IV ONE (10:33)
[2023-06-19 14:12] LABS: Blood Urea Nitrogen 10 mg/dL (6-24); CO2 Carbon Dioxide 23 mmol/L (22-32); Calcium 8.3 mg/dL (8.6-10.3); Chloride 96 mmol/L (101-111); Creatinine, Serum 0.57 mg/dL (0.67-1.17); Glucose 149 mg/dL (70-100); Sodium 127 mmol/L (135-145); eGFR CKD-EPI 107.5 (>60)
[2023-06-19 14:36] LABS: Anion Gap 8 mmol/L (2-16)
[2023-06-19 15:51] LABS: Potassium, Whole Blood 6.8 mmol/L (3.4-4.5)
[2023-06-19 19:19] LABS: Potassium, Whole Blood 2.8 mmol/L (3.4-4.5)
[2023-06-19 19:46] LABS: Calcium 8.2 mg/dL (8.6-10.3); Creatinine, Serum 0.63 mg/dL (0.67-1.17); Magnesium 2.1 mg/dL (1.9-2.7); Phosphorus 1.1 mg/dL (2.5-5.0); eGFR CKD-EPI 104.3 (>60)
[2023-06-19] MEDS ORDERED: KCL 10 MEQ/50 ML IVPREMIX 10 MEQ/50 ML BAG IV SCH (21:00)
[2023-06-19] MEDS: Potassium Chloride LIQUID 20 MEQ/15 ML LIQUID PO ONE (21:13)
[2023-06-19] MEDS: KCL 10 MEQ/50 ML IVPREMIX 10 MEQ/50 ML BAG IV SCH (21:18)
[2023-06-20 01:57] LABS: Calcium 8.1 mg/dL (8.6-10.3); Creatinine, Serum 0.58 mg/dL (0.67-1.17); Magnesium 1.9 mg/dL (1.9-2.7); Potassium 3.3 mmol/L (3.5-5.0); eGFR CKD-EPI 106.9 (>60)
[2023-06-20 06:18] LABS: Calcium 8.1 mg/dL (8.6-10.3); Creatinine, Serum 0.51 mg/dL (0.67-1.17); Magnesium 1.9 mg/dL (1.9-2.7); Phosphorus 2.3 mg/dL (2.5-5.0); eGFR CKD-EPI 111.1 (>60)
[2023-06-20] MEDS: Potassium EFFERVES 25 meq TAB PO ONE (08:39)
[2023-06-20] MEDS: Magnesium Sulfate 2 gm BAG 2 GM/50 ML BAG IVPB ONE (08:40)
[2023-06-20 13:53] LABS: Magnesium 2.2 mg/dL (1.9-2.7); Phosphorus 1.7 mg/dL (2.5-5.0)
[2023-06-20 20:30] LABS: Calcium 8.1 mg/dL (8.6-10.3); Creatinine, Serum 0.45 mg/dL (0.67-1.17); Phosphorus 1.9 mg/dL (2.5-5.0); eGFR CKD-EPI 115.4 (>60)
[2023-06-20 23:38] LABS: Magnesium 2.1 mg/dL (1.9-2.7)
[2023-06-20] MEDS: Potassium Chloride LIQUID 20 MEQ/15 ML LIQUID PO ONE (23:39)
[2023-06-20] MEDS: Potassium Phosphate IV 15 MMOL in NS 0.9% 250 ml 250 ML IVPB ONE (23:44)
[2023-06-21] MEDS: Potassium Chloride LIQUID 20 MEQ/15 ML LIQUID PO ONE (01:49)
[2023-06-21] MEDS: KCL 10 MEQ/50 ML IVPREMIX 10 MEQ/50 ML BAG IV SCH (02:59)
[2023-06-21 07:41] LABS: Calcium 8.3 mg/dL (8.6-10.3); Creatinine, Serum 0.58 mg/dL (0.67-1.17); Magnesium 1.9 mg/dL (1.9-2.7); Potassium 3.7 mmol/L (3.5-5.0); eGFR CKD-EPI 106.9 (>60)
[2023-06-21 20:24] LABS: Calcium 8.4 mg/dL (8.6-10.3); Creatinine, Serum 0.47 mg/dL (0.67-1.17); Potassium 3.3 mmol/L (3.5-5.0); eGFR CKD-EPI 113.9 (>60)
[2023-06-22 06:40] LABS: ABS Eosinophils 0.1 10^3/uL (0.0-0.5); ABS Lymphocytes 1.2 10^3/uL (1.0-4.8); ABS Monocytes 0.7 10^3/uL (0.0-1.1); ABS Neutrophils 4.6 10^3/uL (1.5-7.6); ABS Nucleated RBC 0.01 10^3/ul; Eosinophil % 1.7 %; Hematocrit 38.5 % (38-53); Hemoglobin 13.3 g/dL (13.2-16.3); Lymphocyte % 17.9 %; Mean Corpuscular Hemoglobin 36.8 pg (27-33); Mean Corpuscular Hgb Conc 34.7 g/dL (31-36); Mean Corpuscular Volume 106.3 fL (80-97); Mean Platelet Volume 9.3 fL (7.5-11.2); Nucleated Red Blood Cells % 0.2 %/100WBC (0.0-0.8); Platelet Count 95 10^3/uL (150-450); Red Blood Count 3.62 10^6/uL (4.06-5.63); Red Cell Distribution Width 14.1 % (12-17); White Blood Count 6.5 10^3/uL (3.6-10.2)
[2023-06-22 07:11] LABS: Magnesium 1.8 mg/dL (1.9-2.7); Phosphorus 2.5 mg/dL (2.5-5.0)
[2023-06-22 08:37] LABS: Calcium 8.4 mg/dL (8.6-10.3); Creatinine, Serum 0.56 mg/dL (0.67-1.17); Potassium 3.3 mmol/L (3.5-5.0)
[2023-06-22] MEDS: Magnesium Sulfate 2 gm BAG 2 GM/50 ML BAG IVPB ONE ×2 (11:34→21:48)
[2023-06-22 18:11] LABS: Urine Appearance Clear; Urine Bilirubin Negative (Negative); Urine Blood Negative (Negative); Urine Color Light-Yellow; Urine Glucose Negative (Negative); Urine Ketones Negative (Negative); Urine Nitrite Negative (Negative); Urine Protein Negative (Negative); Urine Urobilinogen Negative (Negative); Urine pH 7.5 (5.0-8.0)
[2023-06-22 18:30] LABS: Urine Benzodiazepine Screen Presumptive Positive (None Detect); Urine Buprenorphine Screen None Detected (None Detect); Urine Cannabinoids Screen Presumptive Positive (None Detect); Urine Fentanyl Screen None Detected (None Detect); Urine Hydrocodone Screen None Detected (None Detect); Urine Opiates Screen None Detected (None Detect)
[2023-06-22] MEDS: Potassium EFFERVES 25 meq TAB PO ONE (21:02)
[2023-06-22] MEDS: Magnesium Sulfate IV 1GM/100ML 1 GM/100 ML BAG IV ONE (21:48)
[2023-06-23 06:42] LABS: Calcium 8.7 mg/dL (8.6-10.3); Creatinine, Serum 0.61 mg/dL (0.67-1.17); Potassium 3.4 mmol/L (3.5-5.0); eGFR CKD-EPI 105.3 (>60)
[2023-06-23 06:53] LABS: Hematocrit 38.8 % (38-53); Hemoglobin 13.3 g/dL (13.2-16.3); Mean Corpuscular Hemoglobin 36.7 pg (27-33); Mean Corpuscular Hgb Conc 34.4 g/dL (31-36); Mean Corpuscular Volume 106.6 fL (80-97); Mean Platelet Volume 9.1 fL (7.5-11.2); Platelet Count 127 10^3/uL (150-450); Red Blood Count 3.64 10^6/uL (4.06-5.63); Red Cell Distribution Width 14.2 % (12-17)
[2023-06-23] MEDS: Potassium Chlor 20 meq TAB.ER PO ONE ×2 (08:17→17:25)
[2023-06-23 08:22] LABS: Phosphorus 3.7 mg/dL (2.5-5.0)
[2023-06-24 07:07] LABS: Calcium 8.7 mg/dL (8.6-10.3); Creatinine, Serum 0.54 mg/dL (0.67-1.17); Magnesium 1.8 mg/dL (1.9-2.7); Potassium 4.1 mmol/L (3.5-5.0); eGFR CKD-EPI 109.2 (>60)
[2023-06-24] MEDS: Magnesium Sulfate 2 gm BAG 2 GM/50 ML BAG IVPB ONE (13:49)
[2023-06-25 07:25] LABS: Calcium 8.6 mg/dL (8.6-10.3); Creatinine, Serum 0.62 mg/dL (0.67-1.17); Potassium 4.1 mmol/L (3.5-5.0); eGFR CKD-EPI 104.8 (>60)
[2023-06-25 10:25] VITALS: BP 100/74
== END 2023-06-25 13:40 | DRG 368 ==
LOC: ED 21:21 → EDHOLD 21:21 → SUATTDRO 06-18 00:37 → MEDTELE 06-18 02:08 → SUATTDRO 06-19 11:47
PROVIDERS: ADMIT Internal Medicine; ATTEND Internal Medicine